=== PATIENT | female | born 1990 | race African-American/Black ===

== ENCOUNTER 2022-01-20 08:27 | Inpatient (IN) | payer OTHER, SELFPAY ==
[2022-01-20] VITALS (115 sets, daily range): BP systolic 72–141; BP diastolic 37–117; PULSE 48–166; RESP 16–18; TEMP 36.7–37.6; O2SAT 98–100
--- NOTE | 2022-01-20 09:00 | LDADM ---
This patient, Katharina Segundo, was admitted to Labor/Delivery/Recovery 108 on 01/20/22 at 08:27. Plans for labor, pain management and were discussed with patient. Patient/family oriented to hospital policies and general routines including ID bracelet, bed and alarms, visiting hours, pain management, procedures, bathroom and other care routines, personal items, smoking policy, room service/diet and guest tray routines, infant security routines, and visiting hours. Patient/Family are encouraged to report perceived risks to care and to ask questions if they do not understand what they are told or what they should do. See OBIX for further documentation.
[2022-01-20] MEDS: LACTATED RINGERS 1,000 ML 999 ML IV CONT (09:17)
[2022-01-20] MEDS: AMPICILLIN 2 GM/NS 100 ML 2 GM/100 ML BAG IVPB (09:18)
[2022-01-20 09:28] LABS: Basophils Percent Auto 0.3 % (0.2-1.2); Eosinophils Percent Auto 0.4 % (0-4.4); Hematocrit 36.4 % (37.0-47.0); Hemoglobin 12.1 g/dL (12.0-15.0); Immature Granulocyte Absolute 0.03 K/mm3 (0.00-0.031); Immature Granulocyte Percent A 0.4 % (0-0.5); Lymphocytes Absolute Auto 1.16 K/mm3 (0.9-3.2); Lymphocytes Percent Auto 14.9 % (18.3-44.2); Mean Corpuscular HGB Conc 33.2 g/dl (32-36); Mean Corpuscular Hemoglobin 27.6 pg (26-34); Mean Corpuscular Volume 82.9 fl (80-100); Monocytes Absolute Auto 0.4 K/mm3 (0.1-0.6); Neutrophils Absolute Auto 6.1 K/mm3 (1.3-6.7); Platelet Count Result 124 k/mm3 (150-375); Red Blood Count 4.39 M/mm3 (4.2-5.4); Red Cell Distribution Width 14.5 % (11.5-14.5); White Blood Count 7.8 K/mm3 (4.5-10.0)
[2022-01-20] MEDS: fentaNYL CITRATE INJ (*CRX) 100 MCG/2 ML VIAL 50 MCG IV PUSH ×2 (09:32→10:07)
[2022-01-20] MEDS: ONDANSETRON INJ 4 MG/2 ML VIAL IV PUSH (09:34)
--- NOTE | 2022-01-20 09:36 | WPDANESEPP ---
Anes - Eval Pre Procedure Procedure: labor epidural Date/Time: 01/20/22 09:36 Surgeon: felicitas Preop Diagnosis: pain during labor Pre Op Diagnosis: IOL Patient Data Age: 31 Gender: F Height: Weight: Last Vital Signs Pulse 77 01/20/22 09:30 BP 124/60 01/20/22 09:30 Allergies Allergy/AdvReac Type Severity Reaction Status Date / Time No Known Allergies Allergy Verified 01/17/22 15:54 Laboratory Tests 01/20/22 01/20/22 09:19 09:19 WBC 7.8 K/mm3 K/mm3 (4.5-10.0) RBC 4.39 M/mm3 M/mm3 (4.2-5.4) Hgb 12.1 g/dL g/dL (12.0-15.0) Hct 36.4 % L % (37.0-47.0) MCV 82.9 fl fl (80-100) MCH 27.6 pg pg (26-34) MCHC 33.2 g/dl g/dl (32-36) RDW 14.5 % % (11.5-14.5) Plt Count 124 k/mm3 L k/mm3 (150-375) MPV 13.0 fl H fl (7.4-10.4) Immature Gran % (Auto) 0.4 % % (0-0.5) Neut % (Auto) 79.0 % H % (45.5-73.1) Lymph % (Auto) 14.9 % L % (18.3-44.2) [place] % (Auto) 5.0 % % (2.6-8.5) Eos % (Auto) 0.4 % % (0-4.4) Baso % (Auto) 0.3 % % (0.2-1.2) Lymph # (Auto) 1.16 K/mm3 K/mm3 (0.9-3.2) [place] # (Auto) 0.4 K/mm3 K/mm3 (0.1-0.6) Eos # (Auto) 0.0 K/mm3 K/mm3 (0-0.3) Baso # (Auto) 0.0 K/mm3 K/mm3 (0.0-0.1) Abs Immat Gran (auto) 0.03 K/mm3 K/mm3 (0.00-0.031) Absolute Neuts (auto) 6.1 K/mm3 K/mm3 (1.3-6.7) Absolute Nucleated RBC 0.0 K/mm3 K/mm3 (0.0-0.012) Nucleated RBC % 0.0 % % (0.0-0.2) RPR Pending Patient hx anesthesia problems: none Family hx anesthesia problems: none Results Review: All pre-operative results and documents have been reviewed as part of the pre-operative evaluation. [facility] Family History Family History (Updated 01/17/22 @ 15:55 by Priti Dangelo RN) Other Unknown family medical history Social History Social History Substance use: current Last use: 2 weeks ago Spiritual care concerns: No Exam Day of Procedure 01/20/22 09:36
[2022-01-20] MEDS: LACTATED RINGERS 1,000 ML 125 ML IV CONT (10:46)
[2022-01-20] MEDS: OXYTOCIN 30 UNITS/NS 500 ML 30 UNITS/500 ML BAG 999 UNITS IV CONT (13:06)
--- NOTE | 2022-01-20 13:17 | PM.OBPRVD ---
OB - Delivery Note Procedure Delivery date: 01/20/22 Procedure: Events: Positive Group B Strep (GBS) Induction method: None Delivery monitor: External FHT and External Uterine Route of delivery: Laceration Description: None Specimen: No Quantitative Blood Loss (ml): 120 Anesthesia type: Epidural Disposition: Floor Narrative: With adequate expulsive efforts by the mother, the baby's head was delivered OA. The baby's anterior shoulder was delivered under the pubic symphysis without difficulty. The posterior shoulder and the rest of the baby delivered without difficulty. The infant was placed on the mothers chest and suctioned and stimulated. The cord was clamped and cut after 30 seconds. Mother and baby both stable. Baby Date of : 01/20/22 Time of : 13:03 Weeks of gestation at delivery: 39 Infant gender: Female Weight (pounds): 6 Weight (ounces): 15 presentation: vertex Placenta delivery description: Spontaneous Cord Vessel Description: 3 Vessels, Nuchal Cord and Delayed Cord Clamping score one minute: 9 score five minutes: 9
[2022-01-20] MEDS: OXYTOCIN 30 UNITS/NS 500 ML 30 UNITS/500 ML BAG 125 UNITS IV CONT (13:44)
[2022-01-20] MEDS: WITCH HAZEL 40 PADS 1 PAD TOPICAL (17:03)
[2022-01-20] MEDS: BENZOCAINE 20% AER SPR (*SP) 56 GM CAN 1 SPRAY TOPICAL (17:03)
[2022-01-20] MEDS: IBUPROFEN 600 MG TABLET PO (18:02)
--- NOTE | 2022-01-20 18:10 | OBPPTRN ---
1629-Patient transferred to post room #291 via wheelchair. Support person present. Oriented to unit, room, information board, rooming in, admission packet and security measures. Patient verbalizes understanding.
[2022-01-21] VITALS: BP 106/60; PULSE 54; RESP 16; TEMP 36.8; BMI 25.0
[2022-01-21 04:20] VITALS: BP 100/56; PULSE 55; RESP 18; TEMP 36.9
[2022-01-21] MEDS: IBUPROFEN 600 MG TABLET PO ×2 (04:24→12:50)
[2022-01-21 05:12] LABS: Hematocrit 32.2 % (37.0-47.0); Hemoglobin 10.4 g/dL (12.0-15.0)
[2022-01-21 07:30] VITALS: BP 109/63; PULSE 62; RESP 16; TEMP 36.6; O2SAT 100
[2022-01-21] MEDS: MULTIVIT/MIN/PREN/FOL AC/IRON TABLET 1 TAB PO (07:36)
[2022-01-21] MEDS: DOCUSATE SODIUM 100 MG CAPSULE PO ×2 (07:36→16:25)
--- NOTE | 2022-01-21 08:34 | PM.OBPNVD ---
OB - PN: Subj Subjective Date/time seen: 01/21/22 08:34 Patient comments: no complaints, pain well controlled, incisional pain, tolerating diet and flatus present OB - PN: Obj Data Labs CBC & Chem 7: 01/21/22 04:21 Labs: Laboratory Results - last 24 hr 01/20/22 01/20/22 01/21/22 09:19 09:19 04:21 WBC 7.8 RBC 4.39 Hgb 12.1 10.4 L Hct 36.4 L 32.2 L MCV 82.9 MCH 27.6 MCHC 33.2 RDW 14.5 Plt Count 124 L MPV 13.0 H Immature Gran % (Auto) 0.4 Neut % (Auto) 79.0 H Lymph % (Auto) 14.9 L [place] % (Auto) 5.0 Eos % (Auto) 0.4 Baso % (Auto) 0.3 Lymph # (Auto) 1.16 [place] # (Auto) 0.4 Eos # (Auto) 0.0 Baso # (Auto) 0.0 Abs Immat Gran (auto) 0.03 Absolute Neuts (auto) 6.1 Absolute Nucleated RBC 0.0 Nucleated RBC % 0.0 Blood Type O Positive Antibody Screen Negative OB - PN A/P Plan day: 1 Plan: routine care Comments: No problems, routine care Time Spent With Patient Time: Total time spent is greater than 50% in coordination of care (as documented) at patient's floor/unit and/or counseling patient: Exam Const: General: comfortable, no acute distress and alert Resp: Effort & Inspection: normal respiratory effort Auscultation: no crackles, no rales and no rhonchi Cardio: Rate: regular rate Heart sounds: no click, no murmurs and no rubs GI: Inspection: non-distended GI Palp: No Tenderness to palpation present (GI) Auscultation: normal bowel sounds Other: Incision - CDI Extrem: General: normal to inspection, no pedal edema and no calf tenderness
--- NOTE | 2022-01-21 08:39 | P.PNAN_ITS ---
Anes - Prog Note Post-Op Date/Time: 01/21/22 08:39 Cardiovascular status: normal Respiratory status: normal Airway patency: baseline Mental status: baseline Post-Op hydration status: normal Vital Signs: Last Vital Signs Temp 36.9 C 01/21/22 04:20 Pulse 55 L 01/21/22 04:20 Resp 18 01/21/22 04:20 BP 100/56 L 01/21/22 04:20 Pulse Ox 100 01/20/22 16:45 O2 Del Method Room Air 01/20/22 19:50 Pain Score (VAS): 0 I/O: Intake & Output 01/20/22 01/21/22 01/21/22 23:59 07:59 15:59 Intake Total 500 Output Total 245 Balance 255 Laboratory Tests 01/21/22 04:21 01/20/22 01/20/22 01/20/22 09:19 09:19 09:19 WBC 7.8 RBC 4.39 Hgb 12.1 Hct 36.4 L MCV 82.9 MCH 27.6 MCHC 33.2 RDW 14.5 Plt Count 124 L MPV 13.0 H Immature Gran % (Auto) 0.4 Neut % (Auto) 79.0 H Lymph % (Auto) 14.9 L [place] % (Auto) 5.0 Eos % (Auto) 0.4 Baso % (Auto) 0.3 Lymph # (Auto) 1.16 [place] # (Auto) 0.4 Eos # (Auto) 0.0 Baso # (Auto) 0.0 Abs Immat Gran (auto) 0.03 Absolute Neuts (auto) 6.1 Absolute Nucleated RBC 0.0 Nucleated RBC % 0.0 RPR Pending Blood Type O Positive Antibody Screen Negative 01/21/22 04:21 WBC RBC Hgb 10.4 L Hct 32.2 L MCV MCH MCHC RDW Plt Count MPV Immature Gran % (Auto) Neut % (Auto) Lymph % (Auto) [place] % (Auto) Eos % (Auto) Baso % (Auto) Lymph # (Auto) [place] # (Auto) Eos # (Auto) Baso # (Auto) Abs Immat Gran (auto) Absolute Neuts (auto) Absolute Nucleated RBC Nucleated RBC % RPR Blood Type Antibody Screen Post-procedural complaints: none Patient Feedback: Patient satisfied with anesthetic care.
[2022-01-21 12:40] VITALS: BP 105/60; PULSE 58; RESP 16; TEMP 36.7; O2SAT 100
[2022-01-21 21:07] VITALS: BP 102/61; PULSE 51; RESP 16; TEMP 36.6; O2SAT 100
[2022-01-21] MEDS: TETANUS,DIPHTHERIA,AC PERTUSSIS ADULT (0.5 ML) BOOSTRIX IM (21:19)
[2022-01-22] MEDS: IBUPROFEN 600 MG TABLET PO ×2 (04:27→10:27)
[2022-01-22 08:50] VITALS: BP 92/51; PULSE 95; RESP 18; TEMP 36.4; O2SAT 100
--- NOTE | 2022-01-22 09:00 | PC.NURSE ---
Patient viewed the discharge video Mother & Baby Care, The First Two Weeks . Patient was given the opportunity and encouraged to ask questions. Patient verbalized understanding of information shared and has been given the mother/baby guide for home reference.
--- NOTE | 2022-01-22 09:26 | P.PNOB_ITS ---
OB - PN: Subj Subjective Date/time seen: 01/22/22 09:26 Patient comments: no complaints baby status: doing well [place] feeding status: breast and bottle feeding OB - PN: Obj Data Labs CBC & Chem 7: 01/21/22 04:21 OB - PN A/P Assessment and Plan (1) , delivered: Code(s): O80 - Encounter for full-term uncomplicated delivery Status: Acute Plan day: 2 Plan: routine care and discharge home Time Spent With Patient Time: Total time spent is greater than 50% in coordination of care (as documented) at patient's floor/unit and/or counseling patient: Time with patient: less than 15 minutes Exam Narrative: NAD abdomen soft, nontender, fundus firm below the umbilicus Extremities nontender, 1+ edema
--- NOTE | 2022-01-22 09:27 | P.DS_ITS ---
DS: Admitting Diagnosis Discharge Date 01/22/22 Admitting Diagnosis term labor DS: Discharge Diagnosis Discharge Diagnosis (1) , delivered: Code(s): O80 - Encounter for full-term uncomplicated delivery Status: Acute DS: Summary Hospital Course Hospital Course: Katharina was admitted in labor at term. She proceeded to have an uncomplicated vaginal delivery and course and was discharged home on day 2. Status at Discharge Functional status at discharge: independent ambulation Time Spent with Patient Time attestation: Total time spent providing and/or coordinating discharge services: Exam Narrative: NAD abdomen soft, appropriately tender Ext non tender, 1+ edema Discharge Plan Discharge Attending physician on discharge: Shelly Garcia Discharging Clinician: Shelly Garcia Anticipated Discharge Date/Time: 01/22/22 09:27 Patient Disposition: Home, Self-Care Activity: pelvic rest Diet: regular Patient Instructions: Antibiotic Form Stand Alone Forms: General Discharge Information Follow-up/Referrals: Shelly Garcia MD [Physician] - 4 Weeks Discharge Medications: Continued PNV [id number] [] 28 mg iron- 800 mcg Tablet 1 tablet PO DAILY Date of admission: 01/20/22 08:27 Primary Care Provider: PHYSICIAN,ACCESSIBILITY LIFT TECHNICIAN Admitting Provider: Shelly Garcia Attending physician on admission: Shelly Garcia Condition: Stable
[2022-01-22] MEDS: DOCUSATE SODIUM 100 MG CAPSULE PO (09:47)
[2022-01-22] MEDS: MULTIVIT/MIN/PREN/FOL AC/IRON TABLET 1 TAB PO (09:47)
[2022-01-23 07:53] LABS: Rapid Plasma Reagin Non-Reactive (NonReactive)
[2022-01-25 10:56] VITALS: BP 120/74; PULSE 56; RESP 16; TEMP 37.3; O2SAT 100
== END 2022-01-22 11:19 | disposition home or self-care (01) | DRG 560 ==
LOC: ANHLDR 13:43 → ANHOB2 16:44
PROVIDERS: Admitting Provider Obstetrics & Gynecology; Visit Provider Obstetrics & Gynecology
DX: O99.824 Streptococcus B carrier state complicating childbirth (principal); D69.6 Thrombocytopenia, unspecified; O69.81X0 Labor and delivery complicated by cord around neck, without compression, not applicable or unspecified; Z3A.39 39 weeks gestation of pregnancy; Z37.0 Single live birth; O99.12 Other diseases of the blood and blood-forming organs and certain disorders involving the immune mechanism complicating childbirth
CPT/HCPCS: 36415; 85014; 85018; 85025; 86592; 86850; 86900; 86901; 90715; A9270; J0290; J2405; J2590; J2795; J3010; J7120

== ENCOUNTER 2025-03-20 08:30 | Emergency (ER) | payer OTHER, SELFPAY ==
--- NOTE | ~2025-03-20 | XR_ITS ---
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 Technique: 2 views obtained. Findings: The lungs are clear, no effusion. No pneumothorax. Heart is normal size. Mediastinal and hilar contours are within normal limits. Bony thorax no acute abnormality. Impression: No acute cardiopulmonary abnormality. Reviewed, dictated and finalized at location P. ING SUPERVISOR Impression: No acute cardiopulmonary abnormality.
--- NOTE | 2025-03-20 08:32 | ECG_ITS ---
Test Date: 2025-03-20 08:40:57 Measurements Intervals [place] Rate: 52 P: -6 ND: 118 QRS: 72 QRSD: 86 T: 45 QT: 398 QTc: 372 Interpretive Statements SINUS BRADYCARDIA WITH SHORT ND INTERVAL WITHIN NORMAL LIMITS INTERPRETATION BASED ON A DEFAULT AGE OF 40 YEARS No previous ECG available for comparison Electronically Signed On 03-20-2025 11:23:14 [employer] by Isaiah Watt M.D.
--- OUTSIDE RECORDS SUMMARY | 2025-03-20 08:34 | XMS_ITS | Data Portability ---
Author Organization [facility] Address [address] [place] [address] Assessment Encounter Date Assessment Date Assessment LastModified by Organization Details LastModified Time 04/19/2017 04/19/2017 Information sheet given to pt about LEEP procedure along with Dr. Vee scheduling information. Explained results to patient in detail along with procedure. Pt verbalized understanding. Will follow up with Dr. Vee for consultation. 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 detailed pathophys of HPV discussed options - will plan to proceed to LEEP at [facility] in late June also sounds like has some pretty irregular periods off of contraception. (longer term project) Not available 06/22/2017 14:49:23 08/03/2017 08/03/2017 post op check from LEEP, no further evidence of HGSIL has f/u pap with Gina in October declines OCPs for irregular perods at this point Not available 08/03/2017 12:23:57 03/26/2018 03/26/2018 1. Counseled regarding prevention of STD's , condom use and prevention. 2. Counseled regarding contraceptive options, risk factors and side effects. 3. Advised avoidance of tobacco, alcohol, and drugs . 4. Counseled regarding folic acid supplementation, calcium needs and prevention of osteoporosis . 5. BSE reviewed and recommended. 6. Follow up in one year or sooner if needed. [email or web address] Not available 03/26/2018 16:03:45 Plan of Treatment Reminders Order Date Submit Date Provider Last Modified By Organization Details Last Modified Time Details Appointments None recorded. Lab pap, IG + reflex HR HPV 2018 019 MELVIN ALEXANDER, [address], [address], [place], [address], 9 16:10:03 bacterial vaginosis + vaginitis panel, vaginal 2018 019 MELVIN ALEXANDERRP, [address], [address], [place], [address], 9 07:09:59 HBsAg (hepatitis B surface Ag), EIA, serum 2018 019 MELVIN ALLAN, [address], [address], [place], [address], 9 16:10:11 HIV 1+2 AB + HIV 1 p24 Ag, qualitative immunoassay , serum 2018 019 MELVIN ALEXANDER, [address], [address], [place], [address], 9 16:10:09 hsv (1+2) igg Ab, serum 2018 019 MELVIN ALLAN, [address], [address], [place], [address], 9 16:10:07 hepatitis C Ab, signal-to-c utoff, serum or plasma 2018 019 MELVIN ALEXANDER, [address], [address], [place], [address], 9 16:10:09 RPR (rapid plasma reagin), serum 2018 019 MELVIN ALEXANDER, [address], [address], [place], [address], 9 16:10:08 herpes simplex virus (1+2) Ab, IgM, QN, IA, serum 2018 019 [facility], [address], [address], [place], [address], 9 16:10:10 pap, IG + reflex HR HPV 2017 018 [facility], [address], [address], [place], [address], 8 16:24:06 Referral None recorded. Procedures None recorded. Surgeries None recorded. Imaging None recorded. Medication Orders None recorded. Patient TargetsNo targets recorded. Patient Instructions Encounter Date Encounter Id Patient Instructions Last Modified By Organization Details Last Modified Time 04/19/2017 [id number] abnormal Pap test: care instructions lauryn Not available 04/19/2017 11:44:35 colposcopy: before your procedure lauryn Not available 04/19/2017 11:44:36 Reason for Referral None Reported. Results Created Date Observation Date Name Description Value Unit Range Abnormal Flag Note LastModifiedBy Organization Detail LastModifiedTime 04/02/20 17 04/10/2017 patho logy study . Commimelda t Mater ial submi tted: . PART A: ENDOC ERVIC AL CURET TAGE PART B: CERVI NAYANA BIOPS Y 6:00 PART C: CERVI NAYANA BIOPS Y 3:00 PART D: CERVI NAYANA BIOPS Y 9:00 PART E: CERVI NAYANA BIOPS Y 12:00 Not Available [facility] ([facility]) [address] [facility], [place], [address], 04/10/2017 16:19:40 04/02/20 17 04/10/2017 patho logy study . Commimelda t Clini deanna provi ded ICD-1 0: R87.6 12 Not Available [facility] ([facility]) [address] [facility], [place], [address], 04/10/2017 16:19:40 04/02/20 17 04/10/2017 patho logy study . Commen t Diagn osis: Part A: ENDOC ERVIC AL CURET TAGE: NO TISSU E PRESE NT, TISSU E DID NOT SURVI VE PROCE SSING . Part B: CERVI NAYANA BIOPS Y 6:00: ECTOC ERVIC AL TISSU E WITH KOILO CYTIC STOUT E (SEE COMME NT). TRANS FORMA TION ZONE IDENT IFIED . Part C: CERVI NAYANA BIOPS Y 3:00: LOW-G RADE SQUAM OUS INTRA EPITH ELIAL LESIO N (GILLES 1) AND HIGH- GRADE SQUAM OUS INTRA EPITH ELIAL LESIO N (GILLES 2) (SEE COMME NT). TRANS FORMA TION ZONE IDENT IFIED . Part D: CERVI NAYANA BIOPS Y 9:00: BENIG N TRANS FORMA TION ZONE TISSU E. Part E: CERVI NAYANA BIOPS Y 12:00 : LOW-G RADE SQUAM OUS INTRA EPITH ELIAL LESIO N (GILLES 1) AND HIGH- GRADE SQUAM OUS INTRA EPITH ELIAL LESIO N (GILLES 2) (SEE COMME NT). TRANS FORMA TION ZONE IDENT IFIED . COMME NT: P16 immun ostai n was perfo rmed on parts B,C and E with the follo wing resul ts. Contr ols stain ed appro priat xavi. Part B- Negat robert Parts C and E- Posit robertabiodun steven rn of stain ing consi stent with high grade The histo logic featu res of this speci men corre late with patie nt's recen t pap smear . SOME TESTS USE ANANL YTE SPECI FIC REAGE NTS (ASR' S). THIS TEST WAS DEVEL OPED AND ITS PERFO RMANC E SHUKRI CTERI STICS DETER MINED BY [facility]. IT HAS NOT BEEN CLEAR ED OR APPRO CESAR BY THE US FOOD AND DRUG ADMIN ISTRA TION. THE FDA HAS DETER MINED THAT SUCH CLEAR ANCE OR APPRO RICARDO IS NOT NECES VLADISLAV. THIS TEST IS USED FOR CLINI NAYANA PURPO SES. IT SHOUL D NOT BE REGAR DED INVES TIGAT IONAL OR FOR RESEA RC. IHC Techn ical perfo rming locat ion, [facility], [address], [place] , [place]. MXB/1 2016 Not Available [facility] ([facility]) [address] [place], [address], 04/10/2017 16:19:40 04/02/20 17 04/10/2017 patho logy study . Commen t Mary león d: . Darcie steven MD, Patho logis t Not Available [facility] ([facility]) [address] [place], [address], 04/10/2017 16:19:40 04/02/20 17 04/10/2017 patho logy study . Commimelda Huynh descr iptio n: . 5 CONTA INERS , FORMA LILIANA-F ILLED , LABEL ED WITH PATIE NT IDENT IFICA TION. Part A: ENDOC ERVIC AL CURET TAGE: SCANT FRAGM ENT(S ) OF MUCUS MEASU RING 0.1 X 0.1 X 0.1 CM IN AGGRE GATE. FILTE RED AND SUBMI TTED IN CASSE TTE(S ) A. THE SPECI MEN MAY NOT SURVI VE PROCE SSING . Part B: CERVI NAYANA BIOPS Y 6:00: 1 FRAGM ENT(S ) OF WHITTEN MUCOI D TISSU E MEASU RING 0.2 X 0.2 X 0.1 CM. FILTE RED AND SUBMI TTED RECEI CESAR IN CASSE TTE(S ) B. Part C: CERVI NAYANA BIOPS Y 3:00: 1 FRAGM ENT(S ) OF WHITTEN MUCOI D TISSU E MEASU RING 0.3 X 0.2 X 0.1 CM. FILTE RED AND SUBMI TTED RECEI CESAR IN CASSE TTE(S ) C. Part D: CERVI NAYANA BIOPS Y 9:00: 1 FRAGM ENT(S ) OF WHITTEN MUCOI D TISSU E MEASU RING 0.3 X 0.2 X 0.1 CM. FILTE RED AND SUBMI TTED RECEI CESAR IN CASSE TTE(S ) D. Part E: CERVI NAYANA BIOPS Y 12:00 : 1 FRAGM ENT(S ) OF WHITTEN MUCOI D TISSU E MEASU RING 0.2 X 0.2 X 0.1 CM. FILTE RED AND SUBMI TTED RECEI CESAR IN CASSE TTE(S ) E. /LMS LMS/L MS Not Available [facility] ([facility]) [address] [place], [address], 04/10/2017 16:19:40 04/02/20 17 04/10/2017 patho logy study . Commen t Patho logis t provi ded ICD-1 0: N87.0 , N87.1 , N87.0 , N87.1 Not Available [facility] ([facility]) [address] [place], [address], 04/10/2017 16:19:40 04/02/20 17 04/10/2017 patho logy study . Commen t CPT . 98250 1, 13666 2, 61154 3, 09899 4, 78604 5, W2006 3, P2006 3 Not Available [facility] ([facility]) [address] [place], [address], 04/10/2017 16:19:40 03/26/20 18 03/28/2018 pap, IG + refle x HR HPV diagnosis: Commen t NEGAT ROBERT FOR INTRA EPITH ELIAL LESIO N AND MALHAROLDO BLEVINS . REACT ROBERT CELLU LAR STOUT ES AND/O R REPAI R ARE PRESE NT. Not Available [facility] ([facility]) [address] [place], [address], 03/28/2018 16:24:06 03/26/20 18 03/28/2018 pap, IG + refle x HR HPV specimen adequacy: Prakash matias Satis facto ry for evalu ation . Endoc ervic al and/o r squam ous metap lasti c cells (endo cervi nayana compo nent) are prese nt. Not Available [facility] ([facility]) [address] [facility], [place], [address], 03/28/2018 16:24:06 03/26/20 18 03/28/2018 pap, IG + refle x HR HPV clinician provided ICD10: Prakash matias Z01.4 11 Not Available [facility] ([facility]) [address] [place], [address], 03/28/2018 16:24:06 03/26/20 18 03/28/2018 pap, IG + refle x HR HPV performed by: Prakash ibarra, Cytot echno logis t (ASCP ) Not Available [facility] ([facility]) [address] [place], [address], 03/28/2018 16:24:06 03/26/20 18 03/28/2018 pap, IG + refle x HR HPV electronical ly signed by: Prakash andrade MD, Patho logis t Not Available [facility] ([facility]) [address] [place], [address], 03/28/2018 16:24:06 03/26/20 18 03/28/2018 pap, IG + refle x HR HPV . . Not Available [facility] ([facility]) [address] [place], [address], 03/28/2018 16:24:06 03/26/20 18 03/28/2018 pap, IG + refle x HR HPV note: Prakash matias The Pap smear is a scree mamta test desig alistair to aid in the detec tion of fatoumata ligna nt and malig nant condi tions of the uteri ne cervi x. It is not a diagn ostic proce dure and shoul d not be used as the sole means of detec ting cervi nayana cance r. Both false -posi tive and false -nega tive repor ts do occur . Not Available [facility] ([facility]) [address] [place], [address], 03/28/2018 16:24:06 03/26/20 18 03/28/2018 pap, IG + refle x HR HPV test methodology: Commen t This liqui d based ThinP rep(R ) pap test was scremaurizio sainz with the use of an image guide marycarmen newton. Not Available [facility] ([facility]) [address] [facility], [place], [address], 03/28/2018 16:24:06 03/26/20 18 03/28/2018 pap, IG + refle x HR HPV . Commen t The HPV DNA refle x crite evelia were not met with this speci men resul t there fore, no HPV testi ng was perfo rmed. Not Available [facility] ([facility]) [address] [facility], [place], [address], 03/28/2018 16:24:06 04/02/20 19 04/03/2019 hsv (1+2) igg Ab, serum hsv 1 IgG, type spec 31.20 index 0.00-0 .90 above high normal Negat robert <0.91 Equiv ocal 0.91 - 1.09 Posit robert >1.09 Note: Negat robert indic ates no antib odies detec harshil to HSV-1 . Equiv ocal may sugge st early infec tion. If clini lester appro priat e, retes t at later date. Posit robert indic ates antib odies detec harshil to HSV-1 . Not Available [facility] ([facility]) [address] [facility], [place], [address], 04/03/2019 16:10:07 04/02/20 19 04/03/2019 hsv (1+2) igg Ab, serum hsv 2 IgG, type spec 3.55 index 0.00-0 .90 above high normal Negat robert <0.91 Equiv ocal 0.91 - 1.09 Posit robert >1.09 Note: Negat robert indic ates no antib odies detec harshil to HSV-2 . Equiv ocal may sugge st early infec tion. If clini lester appro priat e, retes t at later date. Posit robert indic ates antib odies detec harshil to HSV-2 . Not Available [facility]) [address] [facility], [place], [address], 04/03/2019 16:10:07 04/02/20 19 04/03/2019 hsv (1+2) igg Ab, serum hsv-2 IgG supplemental test Positi ve negati ve abnormal HSV-2 IgG HSV-2 IgG Type Speci fic Confi rmati on Inter preta tion ----- ----- ----- ----- ----- ----- ----- ----- ----- ----- ----- Posit robert/E quivo nayana Posit robert Indic ates the prese nce of detec table IgG antib odies to HSV-2 . ----- ----- ----- ----- ----- ----- ----- ----- ----- ----- ----- Posit robert/E quivo nayana Negat robert Unabl e to confi rm the prese nce of IgG antib odies to HSV-2 . Recom mend stephanie magaña in 2-4 weeks . ----- ----- ----- ----- ----- ----- ----- ----- ----- ----- ----- Not Available [facility] ([facility]) [address] [facility], [place], [address], 04/03/2019 16:10:07 04/02/20 19 04/03/2019 RPR (rapi d plasm a reagi n), serum RPR Non Reacti ve non reacti ve Not Available [facility] ([facility]) [address] [facility], [place], [address], 04/03/2019 16:10:08 04/02/20 19 04/03/2019 HIV 1+2 AB + HIV 1 p24 Ag, quali tativ e immun oassa y, serum HIV screen 4TH generation wrfx Non Reacti ve non reacti ve Not Available [facility] ([facility]) [address] [place] [address], [place], [address], 04/03/2019 16:10:08 04/02/20 19 04/03/2019 hepat itis C Ab, signa l-to- cutof f, serum or plasm a HCV Ab <0.1 s/co_ ratio 0.0-0. 9 Not Available [facility] ([facility]) [address] [place] [address], [place], [address], 04/03/2019 16:10:09 04/02/20 19 04/03/2019 hepat itis C Ab, signa l-to- cutof f, serum or plasm a comment: Commen t Non react robert HCV antib diann scree n is consi stent with no HCV infec tion, unles s recen t infec tion is suspe cted or other evide nce exist s to indic ate HCV infec tion. Not Available [facility] ([facility]) [address] [facility], [place], [address], 04/03/2019 16:10:09 04/02/20 19 04/03/2019 herpe s simpl ex virus (1+2) Ab, IgM, QN, IA, serum hsv, IgM I/II combination <0.91 ratio 0.00-0 .90 Negat robert <0.91 Equiv ocal 0.91 - 1.09 Posit robert >1.09 Not Available [facility] ([facility]) [address] [facility], [place], [address], 04/03/2019 16:10:10 04/02/20 19 04/03/2019 HBsAg (hepa titis B surfa ce Ag), EIA, serum HBsAg screen Negati ve negati ve Not Available [facility] ([facility]) [address] [facility], [place], [address], 04/03/2019 16:10:10 04/02/20 19 04/04/2019 bacte rial vagin osis + vagin itis panel , vagin al atopobium vaginae High - 2 score abnormal Not Available [facility] ([facility]) [address] [facility], [place], [address], 04/05/2019 07:09:59 04/02/20 19 04/04/2019 bacte rial vagin osis + vagin itis panel , vagin al bvab 2 High - 2 score abnormal Not Available [facility] ([facility]) [address] [place] [address], [address], 04/05/2019 07:09:59 04/02/2004/04/2019 bacte rial vagin osis + vagin itis panel , vagin al megasphaera 1 High - 2 score abnormal Calcu late total score by rubi bullard the 3 indiv idual bacte rial vagin osis (BV) marke r score s toget her. Total score is inter prete d as follo ws: Total score 0-1: Indic ates the absen ce of BV. Total score 2: Indet ermin ate for BV. Addit ional clini nayana data shoul d be evalu ated to estab karla a diagn osis. Total score 3-6: Indic ates the prese nce of BV. This test was devel oped and its perfo rmanc e shukri cteri stics deter mined by [facility]. It has not been clear ed or appro cesar by the Food and Drug Admin istra tion. The FDA has deter mined that such clear ance or appro ricardo is not neces vladislav. Not Available [facility] ([facility]) [address] [place], [address], 04/05/2019 07:09:59 04/02/20 19 04/04/2019 bacte rial vagin osis + vagin itis panel , vagin al denisa albicans, YISEL Negati ve negati ve Not Available [facility] ([facility]) [address] [facility], [place], [address], 04/05/2019 07:09:59 04/02/2004/04/2019 bacte rial vagin osis + vagin itis panel , vagin al denisa glabrata, YISEL Negati ve negati ve This test was devel boboed and its perfo rmanc e shukri cteri stics deter mined by [facility]. It has not been clear ed or appro cesar by the Food and Drug Admin istra tion. The FDA has deter mined that such clear ance or appro ricardo is not neces vladislav. Not Available [facility] ([facility]) [address] [facility], [place], [address], 04/05/2019 07:09:59 04/02/2004/04/2019 bacte rial vagin osis + vagin itis panel , vagin al trich vag by YISEL Negati ve negati ve Not Available [facility] ([facility]) [address] [place], [address], 04/05/2019 07:09:59 04/02/2004/05/2019 bacte rial vagin osis + vagin itis panel , vagin al chlamydia trachomatis, YISEL Negati ve negati ve Not Available [facility] ([facility]) [address] [facility], [place], [address], 04/05/2019 07:09:59 04/02/20 19 04/05/2019 bacte rial vagin osis + vagin itis panel , vagin al neisseria gonorrhoeae, YISEL Negati ve negati ve Not Available [facility] ([facility]) [address] [place], [address], 04/05/2019 07:09:59 04/02/20 19 04/07/2019 pap, IG + refle x HR HPV diagnosis: Commimelda t NEGAT ROBERT FOR INTRA EPITH ELIAL LESIO N OR MALIG GEN . THIS SPECI MEN WAS RESCR EENED PART OF OUR QUALI TY CONTR OL PROGR AM. Not Available [facility] ([facility]) [address] [facility], [place], [address], 04/07/2019 16:10:03 04/02/20 19 04/07/2019 pap, IG + refle x HR HPV specimen adequacy: Prakash t Satis facto ry for evalu ation . Endoc ervic al and/o r squam ous metap lasti c cells (endo cervi nayana compo nent) are prese nt. Not Available [facility] ([facility]) [address] [facility], [place], [address], 04/07/2019 16:10:03 04/02/20 19 04/07/2019 pap, IG + refle x HR HPV clinician provided ICD10: Prakash matias Z01.4 11 Not Available [facility] ([facility]) [address] [place], [address], 04/07/2019 16:10:03 04/02/20 19 04/07/2019 pap, IG + refle x HR HPV performed by: Prakash Barakat, Cytot echno logis t (ASCP ) Not Available [facility] ([facility]) [address] [place], [address], 04/07/2019 16:10:03 04/02/20 19 04/07/2019 pap, IG + refle x HR HPV QC reviewed by: Prakash nice, Cytot echno logis t (ASCP ) Not Available [facility] ([facility]) [address] [facility], [place], [address], 04/07/2019 16:10:03 04/02/20 19 04/07/2019 pap, IG + refle x HR HPV . . Not Available [facility] ([facility]) [address] [facility], [place], [address], 04/07/2019 16:10:03 04/02/20 19 04/07/2019 pap, IG + refle x HR HPV note: Commen t The Pap smear is a scree mamta test desig alistair to aid in the detec tion of fatoumata ligna nt and malig nant condi tions of the uteri ne cervi x. It is not a diagn ostic proce dure and shoul d not be used as the sole means of detec ting cervi nayana cance r. Both false -posi tive and false -nega tive repor ts do occur . Not Available [facility] ([facility]) [address] [facility], [place], [address], 04/07/2019 16:10:03 04/02/20 19 04/07/2019 pap, IG + refle x HR HPV test methodology: Commen t This liqui d based ThinP rep(R ) pap test was scree alistair with the use of an image guide d syste m. Not Available [facility] ([facility]) [address] [facility], [place], [address], 04/07/2019 16:10:03 04/02/20 19 04/07/2019 pap, IG + refle x HR HPV . Commen t The HPV DNA refle x crite evelia were not met with this speci men resul t there fore, no HPV testi ng was perfo rmed. Not Available [facility] ([facility]) [address] [place], [address], 04/07/2019 16:10:03 Result Notes None recorded. Problems No Known Problems Procedures Surgical History Date Name Laterality Status Provider Name and Address Organization Details Recorded Time 12/04/201 7 Colposcopy completed Gina COLUMBA Sanderson Attn: Accounting,[address] , [place], [address], [facility] 04/11/2017 21:26:46 7 Colposcopy completed Coby Crawford [place] - [facility] 06/22/2017 14:24:14 7 Date of Last Pap Smear completed Coby Crawford [place] [facility] 06/22/2017 09:02:22 7 Depo Injection completed Paulette Leonardo [place] [facility] 05/19/2016 11:28:09 Imaging Results None recorded. Procedure Notes None recorded. Medical Equipment None Reported. Allergies No known drug allergies Medications Name Sig Start Date Stop Date Status Note LastModified by Organization Details LastModified Time Prescriptio n - New 03/16 completed Not Available Not Available Not Available ibuprofen 800 mg tablet active Not Available Not Available Not Available Doc-Q-Lace 100 mg capsule active Not Available Not Available Not Available valacyclovi r 500 mg tablet active Not Available Not Available Not Available Flagyl 500 mg tablet Take 1 tablet every 12 hours by oral route for 7 days. 2018 active Not Available Not Available Not Avai lable ferrous sulfate 325 mg (65 mg iron) tablet active Not Available Not Available Not Available medroxyprog esterone 150 mg/mL intramuscul ar suspension INJECT 1ML INTRAMUSC ULARLY EVERY 3 MONTHS DIRECTED 03/16 completed Not Available Not Available Not Available vits 96-ferrous fumarate 27 mg iron-folic acid 800 mcg tablet active Not Available Not Available N ot Available Vitals Date Recorded Body height Body mass index (BMI) Body weight Systolic And Diastolic Provider Name and Address Organization Details Last Updated DateTime 06/22/2017 167.64 cm 19.7 kg/m2 42917.27 g 104/72 mm[Hg] Coby Crawford MA [facility] 06/22/2017 14:32:10 Date Recorded Body height Body mass index (BMI) Body weight Systolic And Diastolic Provider Name and Address Organization Details Last Updated DateTime 08/03/2017 167.64 cm 20.3 kg/m2 53192.56 g 102/67 mm[Hg] Coby Crawford [facility] 08/03/2017 12:06:01 Date Recorded Body height Body mass index (BMI) Body weight Systolic And Diastolic Provider Name and Address Organization Details Last Updated DateTime 03/26/2018 167.64 cm 20.5 kg/m2 44943.37 g 112/72 mm[Hg] Vani Hoffman MA [facility] 03/26/2018 15:51:57 Date Recorded Body height Body mass index (BMI) Body weight Systolic And Diastolic Provider Name and Address Organization Details Last Updated DateTime 04/02/2019 167.64 cm 20.9 kg/m2 22317.61 g 100/58 mm[Hg] Hui Cruz MA [facility] 04/02/2019 11:01:31 Date Recorded Body height Body mass index (BMI) Body weight Systolic And Diastolic Provider Name and Address Organization Details Last Updated DateTime 04/19/2017 167.64 cm 21.2 kg/m2 68729 g 122/60 mm[Hg] uHi Cruz MA [facility] 04/19/2017 10:09:28 Social History Question Answer Notes LastModified by DNS:Net Details LastModified Time Tobacco Smoking Status Current Some Day [facility] 05/19/2016 11:24:10 Is Blood Transfusion Acceptable In An Emergency? Yes [email or web address] Information not available 06/16/2015 What Is Your Level Of Caffeine Consumption? Moderate [email or web address] Information not available 06/16/2015 What Was The Date Of Your Most Recent Tobacco Screening? 06/22/2017 Information not available 11/21/2018 Do You Use Protection During Sex? Always [email or web address] Information not available 06/16/2015 Are You Sexually Active? Yes Information not available 06/16/2015 Sex: Unknown Functional Status Question Answer Note LastModified by DNS:Net Details LastModified Time What is your level of alcohol consumption? Occasional [email or web address] Information not available 06/16/2015 Mental Status None recorded. Family History Nothing Reported. Medical History Condition Response Other N High Blood Pressure N Breast Cancer N Thyroid Problems N Kidney or Bladder Problems N GI Problems N Depression N Blood Clots N Lung Disease N Acne N Breast Problem N Eating Disorder N Anemia N Anesthesia Complications N Headaches/Migraines N Anxiety Disorder N Diabetes N Ovarian Cancer N Muscle, Joint, or Bone Problems N Blood Transfusions N Seizures/Epilepsy N Polyps N Infertility N Acid Reflux (GERD) N Cancer N Abuse/Domestic Violence N Asthma N Endometriosis N High Cholesterol N Hepatitis N Liver Disease N Heart Disease N Pre-Eclampsia N Osteoporosis N Gynecological History Statement/Question Response Abnormal Pap Y Flow Moderate Date of LMP 03/11/2019 On BCP's at Conception? Y STIs/STDs Y Duration of Flow (days) 7 Age at Menarche 12 Current Control Method None Sexually Active? N Menses Monthly N Date of Last Pap Smear 03/16/2017 LMP Definite Obstetrics History GPAL:G 1 P 1 0 0 1 Type Value Full Term 1 Living 1 Total 1 Past Encounters Encounter ID Performer Location Encounter Start Date Encounter Closed Date Diagnosis/Indication Diagnosis SNOMED-CT Code Diagnosis ICD10 Code Diagnosis IMO Codes Diagnosis Note [id number] MD Temo Mary ([place] [id number]) [address] [place] [address] 3 03/30/2014 17:16:55 03/31/2014 11:51:15 care [id number] Patient doing well. Uses contraception [id number] Counseled regarding option for control and desires depo provera. She understand s that there is possible impact on her milk-let down with this method though that is unlikely and she is encouraged to continue regular breast feeding. Prescripti on was given today for depo provera [id number] MD Temo Mary ([place] [address]) [address] [place] [address] 07/01/2014 09:08:34 07/03/2014 09:20:04 Contraception education [id number] MD Temo Mary ([place] [address]) [address] [place] [address] 06/16/2015 09:56:54 06/16/2015 12:19:34 Gynecologic examination [id number] Z01.419 Uses depot contraception [id number] Z30.42 [id number] Gina Sanderson [facility] Temo Pierce ([place] [address]) [address] [place] [address] 12/17/2015 10:00:31 12/17/2015 10:42:13 Uses contraception [id number] Z30.42 [id number] DESIREE Marcus Womenraymond ([facility]) [address] [facility] [place] [address] 05/19/2016 11:08:28 05/19/2016 16:24:46 Uses depot contraception [id number] Z30.42 [id number] DESIREE Marcus [facility] ([facility]) [address] [place] [address] 03/16/2017 09:55:30 03/16/2017 18:04:36 Gynecologic examination [id number] Z01.954 [id number] DESIREE Marcus [facility] ([facility]) [address] [place] [address] 04/02/2017 11:50:23 04/12/2017 09:08:47 Cervicovaginal cytology: Low grade squamous intraepithelial lesion [id number] R87.137 [id number] DESIREE Marcus ([facility]) [address] [facility] [place] [address] 04/19/2017 10:04:27 04/19/2017 16:32:33 Abnormal cervical Papanicolaou smear [id number] R87.495 [id number] MD Temo Carmichael ([facility]) [address] [facility] [place] [address] 06/22/2017 14:04:24 06/26/2017 12:11:28 Cervicovaginal cytology: High grade squamous intraepithelial lesion or carcinoma [id number] R87.232 [id number] MD Temo Carmichael ([facility]) [address] [facility] [place] [address] 08/03/2017 11:41:03 08/03/2017 12:40:27 Cervicovaginal cytology: High grade squamous intraepithelial lesion or carcinoma [id number] R87.133 [id number] DESIREE Marcus [address] [place] [address] 03/26/2018 15:45:47 03/27/2018 08:59:09 Gynecologic examination 54062078 Z01.773 [id number] DESIREE Marcus Temo 14 OB [address] [facility] [address] [place] [address] 04/02/2019 10:43:43 04/03/2019 08:57:00 Gynecologic examination 60369424 Z01.411 1. Counseled regarding prevention of STD's , condom use and prevention . 2. Counseled regarding contracept robert options, risk factors and side effects. 3. Advised avoidance of tobacco, alcohol, and drugs . 4. Counseled regarding folic acid supplement ation, calcium needs and prevention of osteoporos is . 5. BSE reviewed and recommende d. 6. Follow up in one year or sooner if needed. Venereal d isease screening [id number] Z11.3 1. STD testing done per pt request 2. Educated pt on STD prevention , Condom use 3. Pt verbalized understand ing 4. Will follow up pending lab results, as needed or at next annual Irregular periods [id number] N92.6 Pt encouraged to keep period tracker for next several months. Educated on things that can cause cycle to become irregular including but not limited to stress, exercise, weight loss, weight gain, major life changes etc. Pt verbalized understand ing. Will follow up if interventi on is desired. Health Concerns Section Related Observation LastModified by Organization Detai ls LastModified Time None Recorded Concern Status LastModified by Organization Details LastModified Time None Recorded Advance Directives Directive None Recorded Payers Insurance Date Sequence Insurance Name Policy Number Policy Avilez Covered Member ID Avilez Member ID Guarantor Name 03/30/2019 1 [facility] (MEDICAID HMO) [id number] Notes Date Note Type Note Provider Name and Address Organization Details Recorded Time 7 text/html Follow up on Colpo results. Leep recommended by Dr. Vee. COLUMBA Marcus Attn: Accounting,[address] [facility], [place], [address], [facility] 04/19/2017 11:17:22 8 text/html Annual GYNReported by PatientHistoryFor history, patient reportsno gynecologic complaints.Genitourinary symptomsFor menstrual cycle, patient reportsnormal menses(periods irregular on depo provera). For urinary symptoms, patient reportsno hematuriaandno incontinence. For vulva, patient reportsno genital lesion. For vagina, patient reportsnormal vaginal discharge.Breast symptomsFor breast, patient reportsno breast pain,no breast lump, andno nipple discharge.ContraceptionFo r current contraception, patient reportsmonogamous relationship.Endocrine symptomsFor sexual complaints, patient reportsno sexual complaints. For menopausal symptoms, patient reportsno menopausal symptoms.Psychological symptomsFor psychological symptoms, patient reportsno depression,no anxiety, andno pmdd.Preventative measuresFor preventive measures, patient reportsencourage self breast examination,encourage regular exercise,followed with yearly pap smears, andhistory of abnormal pap smear/cervical dysplasia.ROS as noted in the HPI Annual, no complaints. No longer on control. LEEP done October 2017. DESIREE Marcus Attn: Accounting,[address] [place], [address], [place] [facility] 03/26/2018 16:04:03 9 text/html Annual GYNReported by PatientGenitourinary symptomsFor menstrual cycle, patient reportsirregular cycle intervals. For urinary symptoms, patient reportsno hematuriaandno incontinence. For vulva, patient reportsno genital lesion. For vagina, patient reportsnormal vaginal discharge.Breast symptomsFor breast, patient reportsno breast pain,no breast lump, andno nipple discharge.ContraceptionFo r current contraception, patient reportsmonogamous relationshipandrequests testing for sexually transmitted infections.Endocrine symptomsFor sexual complaints, patient reportsno sexual complaints. For menopausal symptoms, patient reportsno menopausal symptoms.Psychological symptomsFor psychological symptoms, patient reportsno depression,no anxiety, andno pmdd.Preventative measuresFor preventive measures, patient reportsencourage self breast examination,encourage regular exercise,followed with yearly pap smears, andhistory of abnormal pap smear/cervical dysplasia.ROS as noted in the HPI abnormal pap 02/2017LEEP with Vee 06/2017normal pap 02/2018would like std testingstates she has been on cycle since 03/11/19, heavy some days other days light pad. States prior to this she was having regular cycles with exception of same time last year her cycle was 4 weeks long. She states no treatment to stop it at that time. DESIREE Marcus Attn: Accounting,[address], [place], [address], [place] [facility] 04/02/2019 11:23:29 OBGyn Episode Ob Episode Information Episode Created Date Number of Fetuses Patient Bloodtype Patient rh Status Prepregnancy Weight lbs Domestic Partner Domestic Partner Phone Father Name [employer] Status 03/20/20 14 1 CLOSED Fetus Data First Name Last Name Admitted to NICU Weight (g) Sex Living Outcome Pediatric Complications Fetus ID Race Codes Race Delivery Type 3261.32 [id number] F [id number] Vaginal Gomez Calculation Initial Gomez Date Initial Exam Date Initial Exam Provider Initial Ultrasound Date Last Menstrual Period Date Ultra Sound Weeks Gestation 0 Eighteen To Twenty Week Gomez Update Ultra Sound Date Fundal Height At Umbil Quickening Date Ultra Sound Latest Weeks Gestation Final Gomez Confirmed By Final Gomez Confirmed Date Final Gomez Date Ultra Sound Latest Days Gestation 0 0 Menstrual History Last Menstrual Date Menses Monthly On Bcp Conception Prior Menses Frequency Hcg Plus Date Menarche Onset Age Delivery Information Delivery Date Delivery Type Labor Anesthesia Weeks Gestation Incision Type Labor Labor Length Hrs Delivered By Post Complications Tubal Sterilization Discharge Date Comments 4 40 Discharge Information Feeding Method Contraceptive Method Maternal HG B and HCT Levels
--- OUTSIDE RECORDS SUMMARY | 2025-03-20 08:34 | XMS_ITS | Data Portability ---
Author Organization [facility] [place] Address [address] [place] [address] Assessment Encounter Date Assessment Date Assessment LastModified by Organization Details LastModified Time 02/20/2022 02/20/2022 Normal exam May resume normal activities contraceptive plan-- declines. FU for WWE June Not available 02/20/2022 14:47:17 03/09/2025 03/09/2025 Annual gynecological exam performed. Patient will come back in a year unless there are new symptoms. [email or web address] Not available 03/09/2025 12:51:21 Plan of Treatment Reminders Order Date Submit Date Provider Last Modified By Organization Details Last Modified Time Details Appointments None recorded. Lab hbcab (hepatitis B core Ab) igm, serum 2024 [facility] (Lab), [address] [place], [address], 5 04:07:56 HBsAg (hepatitis B surface Ag), serum 2024 [facility] (Lab), [address] [place], [address], 5 04:07:56 hepatitis C virus Ab, serum 2024 025 [facility] (Lab), [address] [place], [address], 5 04:07:57 HIV 1+2 AB + HIV 1 p24 Ag, qualitative immunoassay , serum 2024 025 [facility] (Lab), [address] [facility], [place], [address], 5 04:07:57 RPR (rapid plasma reagin), serum 2024 025 [facility] (Lab), [address] [facility], [place], [address], 5 04:07:57 unlisted lab - women's health swab plus, YISEL 2024 025 [facility] (Lab), [address] [facility], [place], [address], 5 11:48:58 pap, IG + HR HPV - HPV regardless but if HPV is positive need subtyping 16,18/45 2024 025 [facility] (Lab), [address] [facility], [place], [address], 5 11:48:58 Referral None recorded. Procedures None recorded. Surgeries None recorded. Imaging US, obstetric, follow-up 2021 022 [email or web address] [place], [address], [place], [address], 10:42:23 Medication Orders metronidazo le 500 mg tablet 2024 025 [id number], [address], [place], [place], [id number], 13:10:35 Patient TargetsNo targets recorded. Patient InstructionsNo instructions recorded. Reason for Referral None Reported. Results Created Date Observation Date Name Description Value Unit Range Abnormal Flag Note LastModifiedBy Organization Detail LastModifiedTime 12/29/19 22 12/28/2021 CULTU RE: GROUP B STREP SCREE N, REFLE X SUSCE PTIBI LITY result report SEE RESULT S BELOW abnormal Test: Cultu re: Group B Strep , Refle x Susce ptibi lity ([facility]/ [facility] ) Speci men Sourc e: Vagin a/Rec tena Speci men Type: Vagin al/Re ctal Speci men Date: 2021 4:21 PM Resul t Date: 022 8:46 PM Resul t Statu s: Final resul t Abnor mal: Yes Resul ting Lab: [facility] [address] [facility] [address] Tel: CULTU RE ----- ----- ----- --- Posit zarina for Strep tococ cus agala ctiae (Grou p B) (Abno rmal) Clind amyci n susce ptibl e, eryth romyc in resis tant. The clind amyci n induc tion test (D-t est) is negat zarina, there fore clind amyci n shoul d be clini lester effec tive again st this isola te. Not Available [facility] [address] [place], [address], 01/01/2022 21:48:26 01/07/20 22 01/06/2022 CBC W/DIF F WBC 6.2 10'3/ uL 3.6-10 .2 Not Available [facility] [address] [place], [address], 01/07/2022 01:34:43 01/07/20 22 01/06/2022 CBC W/DIF F RBC 4.18 10'6/ uL (based on docume nted legal sex) 4.10-5 .30 Not Available [facility] [address] [place], [address], 01/07/2022 01:34:43 01/07/20 22 01/06/2022 CBC W/DIF F HGB 11.4 g/dL (based on docume nted legal sex) 11.9-1 5.8 low Not Available [facility] [place], [address], 01/07/2022 01:34:43 01/07/20 22 01/06/2022 CBC W/DIF F HCT 35.1 % (based on docume nted legal sex) 37.4-4 8.3 low Not Available [facility] [place], [address], 01/07/2022 01:34:43 01/07/20 22 01/06/2022 CBC W/DIF F MCV 84.0 fL 82.0-9 9.0 Not Available [facility] [place], [address], 01/07/2022 01:34:43 01/07/20 22 01/06/2022 CBC W/DIF F MCH 27.3 pg 27.0-3 3.0 Not Available [facility] [place], [address], 01/07/2022 01:34:43 01/07/20 22 01/06/2022 CBC W/DIF F MCHC 32.5 g/dL 32.0-3 6.0 Not Available [facility] [place], [address], 01/07/2022 01:34:43 01/07/20 22 01/06/2022 CBC W/DIF F RDW 14.8 % 11.0-1 5.0 Not Available [facility] [place], [address], 01/07/2022 01:34:43 01/07/20 22 01/06/2022 CBC W/DIF F plt 128 10'3/ uL 150-45 0 low Not Available [facility] [place], [address], 01/07/2022 01:34:43 01/07/20 22 01/06/2022 CBC W/DIF F MPV 13.9 fL 9.8-12 .7 high Not Available [facility] [place], [address], 01/07/2022 01:34:43 01/07/20 22 01/06/2022 CBC W/DIF F NRBC's 0.0 % 0 Not Available [facility] [place], [address], 01/07/2022 01:34:43 01/07/20 22 01/06/2022 CBC W/DIF F absolute NRBCs 0.0 10'3/ uL 0 Not Available [facility] [place], [address], 01/07/2022 01:34:43 01/07/20 22 01/06/2022 CBC W/DIF F neutrophils 76.3 % 37.0-7 2.0 high Not Available [facility] [place], [address], 01/07/2022 01:34:43 01/07/20 22 01/06/2022 CBC W/DIF F lymphocytes 15.8 % 16.0-4 8.0 low Not Available [facility] [place], [address], 01/07/2022 01:34:43 01/07/20 22 01/06/2022 CBC W/DIF F monocytes 6.3 % 4.0-14 .0 Not Available [facility] [place], [address], 01/07/2022 01:34:43 01/07/20 22 01/06/2022 CBC W/DIF F eosinophils 0.6 % 0.0-9. 0 Not Available [facility] [address] [place], [place] [address], [place], [address], 01/07/2022 01:34:43 01/07/20 22 01/06/2022 CBC W/DIF F basophils 0.5 % 0.0-2. 0 Not Available [facility] [address] [place] [address], [address], 01/07/2022 01:34:43 01/07/20 22 01/06/2022 CBC W/DIF F immature granulocytes 0.5 % no define d refere nce range Not Available [facility] [address] [place] [address], [address], 01/07/2022 01:34:43 01/07/20 22 01/06/2022 CBC W/DIF F absolute neutrophils 4.7 10'3/ uL 1.1-6. 0 Not Available [facility] [address] [place] [address], [address], 01/07/2022 01:34:43 01/07/20 22 01/06/2022 CBC W/DIF F absolute lymphocytes 1.0 10'3/ uL 0.7-3. 4 Not Available [facility] [address] [place] [address], [address], 01/07/2022 01:34:43 01/07/20 22 01/06/2022 CBC W/DIF F absolute monocytes 0.4 10'3/ uL 0.3-1. 0 Not Available [facility] [address] [place] [address], [address], 01/07/2022 01:34:43 01/07/20 22 01/06/2022 CBC W/DIF F absolute eosinophils 0.0 10'3/ uL 0.0-0. 6 Not Available [facility] [place], [address], 01/07/2022 01:34:43 01/07/20 22 01/06/2022 CBC W/DIF F absolute basophils 0.0 10'3/ uL 0.0-0. 1 Not Available [facility] [address], [place], [address], 01/07/2022 01:34:43 01/07/2001/06/2022 CBC W/DIF F absolute immature granulocytes 0.0 10'3/ uL 0.00-0 .10 2021 12:32 AM: P indic ates parti al resul ts on a panel have been relea sed. Addit ional resul ts will follo w. 2021 12:32 AM: This resul t has been final verif ied. No addit ional or fraser ed resul ts are expec harshil. Not Available [facility] [address] [place] [address], [address], 01/07/2022 01:34:43 01/14/2001/13/2022 PLATE LET COUNT plt 126 10'3/ uL 150-45 0 low Not Available [facility] [address] [place], [place] [address], [place], [address], 01/14/2022 04:36:44 03/09/2003/09/2025 WOMEN 'S HEALT H SWAB PLUS, YISEL bacterial vaginosis (bv), tma Positi ve negati ve abnormal Not Available [facility] (Lab) [address] [facility], [place], [address], 03/13/2025 11:48:58 03/09/20 25 03/09/2025 WOMEN 'S HEALT H SWAB PLUS, YISEL denisa species, tma Negati ve negati ve Not Available [facility] (Lab) [address] [facility], [place], [address], 03/13/2025 11:48:58 03/09/2003/09/2025 WOMEN 'S HEALT H SWAB PLUS, YISEL denisa glabrata, tma Negati ve negati ve Not Available [facility] (Lab) [address] [place], [address], 03/13/2025 11:48:58 03/09/20 25 03/09/2025 WOMEN 'S HEALT H SWAB PLUS, YISEL trichomonas vaginalis, tma Negati ve negati ve Not Available [facility] (Lab) [address] [place], [address], 03/13/2025 11:48:58 03/09/20 25 03/09/2025 WOMEN 'S HEALT H SWAB PLUS, YISEL chlamydia trachomatis, PCR Instr ument error Not Available [facility] (Lab) [address] [place], [address], 03/13/2025 11:48:58 03/09/2003/09/2025 WOMEN 'S HEALT H SWAB PLUS, YISEL neisseria gonorrhoeae, PCR Instr ument error Bacte rial vagin osis detec ts the follo wing bacte evelia assoc iated with bacte rial vagin osis (BV): Lacto bacil goldie (L. gasse ri, L. crisp atus and L. jense lissa), Gardn erell a vagin lucy, and Atopo bium vagin ae. A singl e quali tativ e resul t is repor harshil base on instr ument softw are to deter mine BV posit zarina or negat zarina statu s. The [facility] speci es group tests for C. albic ans, C. tropi calis , C. parap anthony is, C. dubli niens is. Testi ng is perfo rmed using the Trans cript ion Media harshil Ampli ficat ion metho d. Tests for Nazanin da glabr marian, Trich omona s vagin lucy, Chlam ydia trach omati s, and Neiss eria gonor doris e are also inclu ded in this panel . Not Available [facility] (Lab) [address] [facility], [place], [address], 03/13/2025 11:48:58 03/09/20 25 03/09/2025 IMAGE GUIDE D PAP AND HPV REGAR DLESS image guided Pap, HPV regardless of Pap result SEE RESULT S BELOW CASE REPOR T: Cytol ogy Gynec ologi nayana Repor t Case: [id number] Autho gus bullard Provi agata: Azeb Mackenzie, RON Colle cted: 03/09 1556 Order ing Locat ion: [place] [facility] Recei cesar: 03/10 0748 First Wang n: Deepali Hugo , CT Rescr een: Destini Simmons, CT Speci men: Wang oleary Pap - Image d, Cervi x STATE MENT OF ADEQU ACY: Satis facto ry for evalu ation Trans forma tion zone compo nent prese nt ----- ----- ----- ----- ----- ----- ----- ----- ----- ----- ----- ----- ----- ----- ----- ----- ----- ---- FINAL DIAGN OSIS: Negat zarina for Intra epith elial Leshaider ibarra or Katie lorenz ([facility]) . Shift in teresa sugge stive of bacte rial vagin osis. 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 COMME NT: Slide scree alistair manua lly due to rejec tion by the Thinp rep Imagi ng Syste m. CLINI NAYANA INFOR MATIO N: Menst rual Statu s: LMP (if appli cable ): Clini nayana Histo ry/Pr eviou s Pap: Type of Neopl alina (if appli cable ): Signi fican t Clini nayana Findi ngs: Other Histo ry: Hormo tawny (if appli cable ): PAP EDUCA SIERRA L NOTE: The Pap Test is a scree mamta test with an inher ent false negat zarina rate. Liqui d-bas ed sampl ing may decre ase, but will not elimi leonel, false negat zarina resul ts. A negat zarina resul t does not precl ude the prese nce and/o r devel opmen t of disea se, since the prese nce of abnor mal cells in the sampl e depen ds on the locat ion of the lesio n and sampl ing techn ique. Nadine nued regul ar scree mamta is the best metho d of cance r preve ntion . If repor harshil cytol ogic findi ng do not corre late with physi nayana and/o r histo rical findi ngs, furth er inves tigat ion is recom shane d, as clini lester warra nted. Not Available [facility] (Lab) [address], [place], [address], 03/13/2025 11:48:58 12/08/19 22 12/06/2021 US, obste tric, follo w-up No observ ation record ed. [email or web address] [facility] [address] [place] [address], [address], 12/14/2021 17:21:22 12/29/19 22 12/28/2021 US, obste tric, follo w-up No observ ation record ed. [email or web address] [place] [address], [place], [address], 12/28/2021 13:46:54 12/29/19 22 12/28/2021 US, obste tric, follo w-up No observ ation record ed. MELVIN Stokese [address], [place], [address], 12/28/2021 18:20:19 01/13/20 22 01/12/2022 US, obste tric, follo w-up No observ ation record ed. [email or web address] [place] [address], [place], [address], 01/12/2022 12:50:54 01/13/20 22 01/12/2022 US, obste tric, follo w-up No observ ation record ed. MELVIN Rodriguez [address], [place], [address], 03/13/2022 08:18:20 Result Notes None recorded. Problems Name Problem SNOMED Code Status Onset Date Resolution Date Notes Provider Name and Address Organization Details Recorded Time Shoulder dystocia - delivere d Active mild SD with first. Discusse d risks, offered CS, desires . Olena ortiz [facility] 2 14:02:41 History of loop electros urgical excision procedur e [id number] 102 Active CL 16 and 20w Olena ortiz [facility] 2 14:02:40 Shoulder dystocia - delivere d [id number] Completed mild SD with first. Discusse d risks, offered CS, desires . Olena ortiz [facility] 2 14:02:41 History of loop electros urgical excision procedur e [id number] 102 Completed CL 16 and 20w Olena yousifl null, [facility] 2 14:02:40 Robbie casiano user [id number] Completed encourag ed cessatio n Olena Slatervero ehl null, [facility] 2 14:02:41 Thromboc ytopenic disorder 635475021 Active plt 144. Rpt plt on 11/16. Rpt 38wks per SB!!!! Stable RPT L&D Olena Jaramillo ehl null, [facility] 2 14:02:40 Thromboc ytopenic disorder 516168538 Completed plt 144. Rpt plt on 11/16. Rpt 38wks per SB!!!! Stable RPT L&D Olena Jaramillo ehl null, [facility] 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 2 14:02:41 Complex cyst of left ovary [id number] 514826 Completed CA125 @ 16wk appt on 08/10! Recheck at anatomy scan 24wk, torsion precauti ons Olena Jaramillo ehl null, [facility] 2 14:02:41 Finding of growth 561901845 Completed 11/30 - EFW 10% & AC 7% with us. Level II u/s on 12/06 EFW 20% and AC 33% - rpt growth 3 wks [place] Clint l null, [facility] 2 14:02:41 Pregnanc y 64222285 Completed 202102/21/2022 Olena Jaramillo l null, [facility] 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 2 14:02:41 Group B Streptoc occus carrier [id number] 03 Completed 2021 [facility] null, [facility] 2 14:02:40 Problem Notes None recorded. Procedures Surgical History Date Name Laterality Status Provider Name and Address Organization Details Recorded Time 2 Date of Last Pap Smear completed [facility] 06/22/2021 10:40:12 9 Colposcopy completed [facility] 06/22/2021 17:27:03 9 Colposcopy completed [facility] 06/22/2021 17:29:13 9 LEEP completed [facility] 06/22/2021 17:29:20 Imaging Results None recorded. Procedure Notes None recorded. Medical Equipment None Reported. Allergies No known drug allergies Medications Name Sig Start Date Stop Date Status Note LastModified by Organization Details LastModified Time metronidazo le 0.75 % (37.5 mg/5 gram) vaginal gel Insert 1 applicato rful every day by vaginal route at bedtime for 5 days. 09/07 completed Not Available Not Available Not Available metronidazo le 500 mg tablet Take 1 tablet every 12 hours by oral route for 7 days. 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 03/09 completed Not Available Not Available Not Available C-Leonel DHA 28 mg iron-1 mg-200 mg capsule TAKE ONE CAPSULE BY MOUTH EVERY DAY active Not Available Not Available No t Available Vitals Date Recorded Body height Body mass index (BMI) Body weight Systolic And Diastolic Provider Name and Address Organization Details Last Updated DateTime 01/06/2022 165.74 cm 26.1 kg/m2 31503.594 46 g 118/70 mm[Hg] [facility] 01/06/2022 09:57:02 Date Recorded Body height Body mass index (BMI) Body weight Systolic And Diastolic Systolic And Diastolic Provider Name and Address Organization Details Last Updated DateTime 01/13/2022 165.74 cm 26.9 kg/m2 17686.55 631 g 146/65 mm[Hg] 132/80 mm[Hg] [facility] 10:53:49 Date Recorded Body weight Provider Name an d Address Organization Details Last Updated DateTime 02/20/2022 15038.32037 g Olena Franklin [facility] 02/21/2022 14:02:46 Date Recorded Body height Body mass index (BMI) Systolic And Diastolic Systolic And Diastolic Provider Name and Address Organization Details Last Updated DateTime 02/20/2022 165.74 cm 23.4 kg/m2 148/106 mm[Hg] 130/90 mm[Hg] [facility] 02/20/2022 14:24:30 Date Recorded Body height Body mass index (BMI) Body weight Systolic And Diastolic Provider Name and Address Organization Details Last Updated DateTime 03/09/2025 165.74 cm 22.1 kg/m2 33638.38 g 122/70 mm[Hg] Pati Mena [facility] 03/09/2025 12:52:21 Social History Question Answer Notes LastModified by Organizat ion Details LastModified Time Tobacco Smoking Status Former Smoker Kenzie Lagos [facility] 01/13/2022 10:19:21 Do You Have An Advance Directive? No Information not available 08/10/2021 Are You Blind Or Do You Have Difficulty Seeing? No [email or web address] Information not available 06/22/2021 What Is Your Level Of Caffeine Consumption? Occasional [email or web address] Information not available 06/22/2021 In The 14 Days Before Symptom Onset, Have You Had Close Contact With A Laboratory-confir med COVID-19 While That Case Was Ill? No [email or web address] Information not available 06/22/2021 In The 14 Days Before Symptom Onset, Have You Had Close Contact With A Person Who Is Under Investigation For COVID-19 While That Person Was Ill? No [email or web address] Information not available 06/22/2021 Have You Been To An Area Known To Be High Risk For COVID-19? No [email or web address] Information not available 06/22/2021 Are You Deaf Or Do You Have Serious Difficulty Hearing? No [email or web address] Information not available 06/22/2021 What Type Of Diet Are You Following? REGULAR [email or web address] Information not available 06/22/2021 What Is The Highest Grade Or Level Of School You Have Completed Or The Highest Degree You Have Received? [id number] Information not available 08/10/2021 Are There Any Guns Present In Your Home? No Information not available 08/10/2021 Have You Ever Been Counseled For Unhealthy Alcohol Use? No [email or web address] Information not available 01/13/2022 Do You Use Protection During Sex? No Information not available 08/10/2021 Do You Use Your Seat Belt Or Car Seat Routinely? Yes [email or web address] Information not available 06/22/2021 Do You Have Smoke And Carbon Monoxide Detectors In Your Home? Yes [email or web address] Information not available 06/22/2021 Do You Use Sunscreen Routinely? No Information not available 08/10/2021 Has Tobacco Cessation Counseling Been Provided? No [email or web address] Information not available 01/13/2022 Have You Used IV Drugs? No Information not available 08/10/2021 Do You Have Difficulty Walking Or Climbing Stairs? No [email or web address] Information not available 01/13/2022 Sex: Unknown Functional Status Question Answer Note LastModified by Organizat ion Details LastModified Time Do you use any illicit or recreational drugs? No [email or web address] Information not available 06/22/2021 Do you or have you ever used any other forms of tobacco or nicotine? No Information not available 01/13/2022 What is your level of alcohol consumption? None Information not available 08/10/2021 Are you able to walk independently without assistance or assistive devices? YESWOREST [email or web address] Information not available 06/22/2021 Are you able to care for yourself independently? 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 No [email or web address] Information not available 01/13/2022 What is your exercise level? Occasional [email or web address] Information not available 06/22/2021 Mental Status Question Answer Note LastModified by Organization D etails LastModified Time Do you feel stressed (tense, restless, nervous, or anxious, or unable to sleep at night)? [id number] Information not available 08/10/2021 Family History Relationship Description Onset Age of this Age Resolved Age Notes LastModified by Organization Details LastModified Time Mother Hypertensive disorder [email or web address] Not available 06/22 17:28:19 Medical History Condition Response Allergies (Food, seasonal, environmental ) N Other N Drug/Latex Allergies/Reactions N Blood Transfusion N Breast Cancer N Dermatologic Disorders N Lung Disease N Defects or Inherited Disease N Breast Problem N Gestational Diabetes N Hematologic disorders N Anesthesia Complications N History of STI N Deep Vein Thrombosis N Polycystic ovary syndrome N Anxiety Disorder N Autoimmune disease N Arthritis N Polyps N Infertility N Acid Reflux (GERD) N History of abnormal pap Y Cancer N Varicosities N Stroke N Neurologic/Epilepsy N Endometriosis N High Cholesterol N Fibromyalgia N Headaches N Kidney Disease N Heart Problems N Thyroid Problems N Kidney or Bladder Problems N GI Problems N Eating Disorder N Anemia N Art (IVF or FET) N Psychiatric Illness N Ovarian Cancer N Diabetes N Pulmonary (TB, Asthma) N Hepatitis/Liver Disease N No Past Medical History N Eczema N Urinary Tract Infection N Abuse/Domestic Violence N Asthma N Trauma/Violence N Depression/ depression N Heart Disease N Pre-Eclampsia N Hypertension N Osteoporosis N Thrombophilias N Gynecological History Statement/Question Response Abnormal Pap Y Date of Last Mammogram Flow Moderate Date of LMP 02/05/2025 Was last menstrual period normal Y STIs/STDs N HPV Vaccine N Colposcopy 04/30/2018 Duration of Flow (days) 5 Current Control Method None Age at First Child 24 Are cycles usually normal Y Frequency of Cycle (Q days) 30 Most Recent Bone Density Sexually Active? Y Menses Monthly Y Date of Last Pap Smear 06/22/2021 Sexual Problems? N LMP Approximate N Obstetrics History GPAL:G 2 P 2 0 0 2 Type Value Full Term 2 Living 2 Total 2 Past Encounters Encounter ID Performer Location Encounter Start Date Encounter Closed Date Diagnosis/Indication Diagnosis SNOMED-CT Code Diagnosis ICD10 Code Diagnosis IMO Codes Diagnosis Note [id number] [facility] [address],[place] [address] 06/22/2021 10:09:14 06/22/2021 11:27:27 Amenorrhea 26960187 N91.2 Gynecologi c examination 30347444 Z01.419 [id number] Johan Mead MD [facility] [address],[place] [address] 06/22/2021 10:13:55 06/22/2021 11:24:57 screening [id number] Z36.87 [id number] Shelly Garcia MD [facility] [address],[place] [address] 07/13/2021 09:59:55 07/13/2021 10:48:06 Routine care 694527466 Z34.91 Shoulder d ystocia - delivered 842232039 O66.0 History of loop electrosurgical excision procedure [id number] 9102 Z98.890 [id number] Shelly Garcia MD [facility] [address],[place] [address] 07/13/2021 10:05:19 07/13/2021 13:34:07 screening 028008748 Z36.82 O34.80 Z3A.12 [id number] Johan Mead MD [facility] [address],[place] [address] 08/10/2021 14:45:32 08/10/2021 15:21:17 Previous operation to cervix affecting 01526015 O34.42 O34.80 Z3A.16 [id number] Johan Mead MD [facility] [address],[place] [address] 08/10/2021 14:45:54 08/10/2021 15:46:45 Cyst of left ovary 6811932349 4006367 N83.202 screening 2437 98834 Z36.89 [id number] [facility] [address],[place] [address] 09/07/2021 10:39:25 09/07/2021 12:47:52 Routine care 788975685 Z34.92 [id number] Johan Mead MD [facility] [address],[place] [address] 09/07/2021 10:38:11 09/07/2021 11:52:01 screening for malformation 362033628 Z36.3 O34.80 O34.42 Z3A.20 [id number] Johan Mead MD [facility] [address],[place] [address] 10/05/2021 11:42:28 10/05/2021 12:40:53 condition affecting obstetrical care of mother 033353189 O35.8XX0 O34.80 Z3A.24 [id number] [facility] [address],[place] [address] 10/05/2021 11:44:32 10/05/2021 12:53:03 Routine care [id number] Z34.92 [id number] [facility] [address],[place] [address] 11/02/2021 12:21:33 11/02/2021 15:07:32 Routine care 087857925 Z34.92 [id number] Johan Mead MD [facility] [address],[place] [address] 11/16/2021 16:51:47 11/16/2021 17:54:09 Thrombocytopenic disorder 424926571 D69.6 Routine an tenatal care 224481081 Z34.83 [id number] Johan Mead MD [facility] [address],[place] [address] 11/30/2021 16:51:11 11/30/2021 18:01:45 Routine care 697442223 Z34.83 [id number] MD Tino Tovar [address],[place] [address] 11/30/2021 16:51:48 11/30/2021 18:19:43 Cyst of ovary in 5426736223 5507803 O34.80 O36.5930 Z3A.32 [id number] MD Tino Clement [address],[place] [address] 12/14/2021 10:24:19 12/14/2021 11:11:40 Routine care 334880838 Z34.91 [id number] MD Tino Clement [address],[place] [address] 12/28/2021 12:46:58 12/28/2021 14:23:12 Routine care 387689891 Z34.91 [id number] MD Tino Clement [address],[place] [address] 12/28/2021 12:51:16 12/28/2021 14:06:36 Small for gestational age fetus 092003924 O36.5930 O34.83 Z3A.36 [id number] MD Tino Clement [address],[place] [address] 01/06/2022 09:48:58 01/06/2022 10:30:00 Group B Streptococcus carrier 6001492466 103 Z22.330 Shoulder d ystocia - delivered 891587159 O66.0 Thrombocyt openic disorder 475605928 D69.6 Routine an tenatal care 298710501 Z34.91 [id number] Shelly Garcia MD [facility] [address],[place] [address] 01/12/2022 10:10:22 01/12/2022 11:08:54 Small for gestational age fetus 284297515 O36.5930 O34.83 Z3A.38 [id number] Shelly Garcia MD [facility] [address],[place] [address] 01/13/2022 10:18:55 01/16/2022 15:34:26 Group B Streptococcus carrier 4795477304 103 Z22.330 History of loop electrosurgical excision procedure 7609500588 9102 Z98.890 Shoulder d ystocia - delivered 910290477 O66.0 Thrombocyt openic disorder 846114596 D69.6 [id number] Shelly Gacria MD [facility] [address],[place] [address] 02/20/2022 14:14:16 02/20/2022 14:48:29 care 489046813 Z39.2 [id number] AGUSTINA Coreas [facility] [address],[place] [address] 03/09/2025 12:20:40 03/11/2025 10:07:34 Gynecologic examination 17607734 Z01.996 [id number] WWEBC - declinedPa p - done todaySTI screen - orderedRou cristin labs - PCPRTC in 1 yr or sooner if needed It is strongly advised to have an annual flu shot and up can obtain at most pharmacies . If you have not had a TDap shot in the last 10 years you should obtain one as well. Discussed with patient & provided with informatio n regarding the HPV vaccine if applicable . Encourage safe sexual practices, to use condoms and limit partners if not already in a monogamous relationsh ip. Do monthly self breast exams. BRCA testing is now available for patients with strong genetic history of female cancer. If interested contact the office. Engage in regular exercise. Avoid tobacco and illicit drugs. This lifestyle behavior pattern will lead to less health conditions and longer life span. If BMI greater than 25 dietary consult advised. Questions answered. Vaginal odor 722944441 N 89.8 629298 vaginitis/ STI screen sentrx sent for BV, r/b/a reviewedvu lvar care guidelines discussed Venereal d isease screening 576305150 Z11.3 33119 Discussed the various types of STIs, related symptoms and the potential consequenc es (including effects on fertility) of STI infections . Reviewed ways to limit exposure and prevention techniques . Time spent in visit is a total of 25 mins with at least 50% of visit consisting of counseling and review of plan of care. Sexually t ransmitted infectious disease 0877271 A64 Health Concerns Section Related Observation LastModified by Organization Detai ls LastModified Time None Recorded Concern Status LastModified by Organization Details LastModified Time None Recorded Advance Directives Directive N: Payers Insurance Date Sequence Insurance Name Policy Number Policy Avilez Covered Member ID Avilez Member ID Guarantor Name 03/09/2025 1 [facility] (MEDICAID HMO) [id number] [facility] [id number] [facility] 06/06/2021 1 *SELF PAY* evette Sanya 01/17/2022 1 [place] [facility] Katharina Segundo [id number] [facility] 03/09/2025 2 [facility] (MEDICAID HMO) [id number] [facility] [id number] [facility] Notes Date Note Type Note Provider Name and Address Organization Details Recorded Time 2 text/html Generic HPI TemplateReported by Patient Shelly Garcia MD [address], [place], [address], [facility] 01/06/2022 10:17:57 2 text/html Generic HPI TemplateReported by Patient Shelly Garcia MD [address], [place], [address], [facility] 01/13/2022 16:53:37 2 text/html VisitReported by Patient Patient is a 31yo presenting for a 4 week visit. She had a on 01/20 at 39.5 weeks GA. Baby Rigo was 6-15, doing well Doing well overall. . Normal lochia. Pain- none. Bowel and bladder function normal. Bethalto score 7 Period-no Annual due: june Concerns: none Shelly Garcia MD [address], [place], [address], [facility] 02/20/2022 14:47:48 5 text/html Annual GYNReported by PatientGenitourinary symptomsFor vagina, patient reportsfoul-smelling. For menstrual cycle, patient reportsnormal menses. For urinary symptoms, patient reportsno hematuriaandno incontinence. For vulva, patient reportsno genital lesion.Breast symptomsFor breast, patient reportsno breast pain,no breast lump, andno nipple discharge.ContraceptionFo r current contraception, patient reportsbirth control not practiced.Endocrine symptomsFor sexual complaints, patient reportsno sexual complaints,no pain during intercourse, andnormal libido. For menopausal symptoms, patient reportsno menopausal symptomsandnormal vaginal lubrication.Psychological symptomsFor psychological symptoms, patient reportsno depression,no anxiety, andno pmdd.Preventative measuresFor preventive measures, patient reportsencourage self breast examination,encourage regular exercise, andencourage no tobacco use.35yo wwelast pap 2021 wnlvaginal odor/discharge over the past few wksshe would like STI testing today AGUSTINA Coreas [address], [place], [address], [facility] 03/11/2025 09:04:11 OBGyn Episode Ob Episode Information Episode Created Date Number of Fetuses Patient Bloodtype Patient rh Status Prepregnancy Weight lbs Domestic Partner Domestic Partner Phone Father Name Cash Checker Status 07/14/19 22 1 O Positive 135 CLOSED Fetus Data First Name Last Name Admitted to NICU Weight (g) Sex Living Outcome Pediatric Complications Fetus ID Race Codes Race Delivery Type Rigo 3146.79 45 F true Full Term [id number] Vaginal Delivery Problems Problem Notes NIPT NL XXLevel II u/s 11/08 230 u/s only & 8/9 230P Level II u/s only Problem Name Start Date End Date Resolution Snomed Code Not e 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 Discussed risks, offered CS, desires . History of loop electrosurgical excision procedure [id number] CL 16 a nd 20w Marijuana user 482313440 encou raged cessation Thrombocytopenic disorder 625502188 plt 144. Rpt pl t on 11/16 - 129. Rpt 38wks per SB!!!! Stable RPT L&D Complex cyst of left ovary 13017116603071745 CA125 @ 16 wk appt on 08/10! Recheck at anatomy scan 24wk, torsion precautions Finding of growth 742403297 11/30 - EFW 10% & AC 7% with us. Level II u/s on 12/06 EFW 20% and AC 33% - rpt growth 3 wks Group B Streptococcus carrier 01/02/2022 [id number] Sweta Calculation Initial Sweta Date Initial Exam Date Initial Exam Provider Initial Ultrasound Date Last Menstrual Period Date Ultra Sound Weeks Gestation 01/22/2022 07/13/2021 06/22/2021 04/07/2021 9 Eighteen To Twenty Week Sweta Update Ultra Sound Date Fundal Height At Umbil Quickening Date Ultra Sound Latest Weeks Gestation Final Sweta Confirmed By Final Sweta Confirmed Date Final Sweta Date Ultra Sound Latest Days Gestation 0 [email or web address] 07/13/2021 01/23/20 22 0 Pre- Flowsheet Flowsheet Date 07/13/2021 Williamson Score Blood Edema Fundus Height Fundus Units Glucose Ketones Leukocytes Nitrite Labor Signs Protein Cervic Dilation Cervic Effacement Cervic Station neg trace none trace Type Weight in lbs Pre/Post Dialysis Refused Weight 136.799972121747 BP Diastolic BP Location Tested BP Systolic BP Type 83 119 Fetus Heart Rate Present A 150 Fetus Movement A No Comments Charniece is a 31yo who presents for care. Her last was uncomplicated except for a mild shoulder dystocia, which baby had no issues from. We discussed risks of SD including nerve and brain damage to baby. Since it was mild she prefers a vaginal delivery over CS. SHe had a LEEP 2016 with all normal paps since. We will do CL at 16 and 20w. She is trying to quit smoking MJ. She has not had flu shot. She had COVID vaccines, but not booster- due in a couple weeks, will get. PNL and NIPT today. NT to follow appointment. Flowsheet Date 07/13/2021 Williamson Score Blood Edema Fundus Height Fundus Units Glucose Ketones Leukocytes Nitrite Labor Signs Protein Cervic Dilation Cervic Effacement Cervic Station Type Weight in lbs Pre/Post Dialysis Refused BP Diastolic BP Location Tested BP Systolic BP Type Fetus Heart Rate Present Fetus Movement Comments Flowsheet Date 08/10/2021 Williamson Score Blood Edema Fundus Height Fundus Units Glucose Ketones Leukocytes Nitrite Labor Signs Protein Cervic Dilation Cervic Effacement Cervic Station Type Weight in lbs Pre/Post Dialysis Refused BP Diastolic BP Location Tested BP Systolic BP Type Fetus Heart Rate Present Fetus Movement Comments Flowsheet Date 08/10/2021 Williamson Score Blood Edema Fundus Height Fundus Units Glucose Ketones Leukocytes Nitrite Labor Signs Protein Cervic Dilation Cervic Effacement Cervic Station 16 Type Weight in lbs Pre/Post Dialysis Refused Weight 142.033953581219 BP Diastolic BP Location Tested BP Systolic BP Type 65 R arm 100 sitting Fetus Heart Rate Present A 145 Fetus Movement Comments persistent complex left ovar harsh cyst. Reviewed the images with the patient. Discussed ovarian cysts, etiology, natural history, treatment. Discussed CA 125 and alpha protein. Spent over 15 minutes discussing these complex issues. To obtain CA 125 today along with alpha protein. To contact the patient with those results. Flowsheet Date 09/07/2021 Williamson Score Blood Edema Fundus Height Fundus Units Glucose Ketones Leukocytes Nitrite Labor Signs Protein Cervic Dilation Cervic Effacement Cervic Station Type Weight in lbs Pre/Post Dialysis Refused BP Diastolic BP Location Tested BP Systolic BP Type Fetus Heart Rate Present Fetus Movement Comments Flowsheet Date 09/07/2021 Williamson Score Blood Edema Fundus Height Fundus Units Glucose Ketones Leukocytes Nitrite Labor Signs Protein Cervic Dilation Cervic Effacement Cervic Station neg none none trace Type Weight in lbs Pre/Post Dialysis Refused Weight 146.900276853918 BP Diastolic BP Location Tested BP Systolic BP Type 61 103 Fetus Heart Rate Present Fetus Movement A Yes Comments ovarian cyst septated?, revi ewed torsion precautions, no pain or cramping anatomy complete LVEIF, f/u 4 weeks ok for clartitin daily Flowsheet Date 10/05/2021 Williamson Score Blood Edema Fundus Height Fundus Units Glucose Ketones Leukocytes Nitrite Labor Signs Protein Cervic Dilation Cervic Effacement Cervic Station Type Weight in lbs Pre/Post Dialysis Refused BP Diastolic BP Location Tested BP Systolic BP Type Fetus Heart Rate Present Fetus Movement Comments Flowsheet Date 10/05/2021 Williamson Score Blood Edema Fundus Height Fundus Units Glucose Ketones Leukocytes Nitrite Labor Signs Protein Cervic Dilation Cervic Effacement Cervic Station neg none none trace Type Weight in lbs Pre/Post Dialysis Refused Weight 148.973827944799 BP Diastolic BP Location Tested BP Systolic BP Type 69 107 Fetus Heart Rate Present Fetus Movement A Yes Comments efw 27%, LT ovarian cyst 8.6 x7.8x6.3cm, precautions reviewed, f/u 4 weeks with gct and us Flowsheet Date 11/02/2021 Williamson Score Blood Edema Fundus Height Fundus Units Glucose Ketones Leukocytes Nitrite Labor Signs Protein Cervic Dilation Cervic Effacement Cervic Station neg none 30 none trace Type Weight in lbs Pre/Post Dialysis Refused Weight 151.799429543439 BP Diastolic BP Location Tested BP Systolic BP Type 64 105 Fetus Heart Rate Present A 144 Fetus Movement A Yes Comments patient is having some back pain and nausea. has mfm appt, no pain, precautions reviewed. gct today f/u2 weeks Flowsheet Date 11/16/2021 Williamson Score Blood Edema Fundus Height Fundus Units Glucose Ketones Leukocytes Nitrite Labor Signs Protein Cervic Dilation Cervic Effacement Cervic Station 27 Type Weight in lbs Pre/Post Dialysis Refused Weight 155.63859796094 BP Diastolic BP Location Tested BP Systolic BP Type 64 R arm 100 sitting Fetus Heart Rate Present A 148 Fetus Movement Comments size<dates - U/S, check plat elets today Flowsheet Date 11/30/2021 Williamson Score Blood Edema Fundus Height Fundus Units Glucose Ketones Leukocytes Nitrite Labor Signs Protein Cervic Dilation Cervic Effacement Cervic Station 32 Type Weight in lbs Pre/Post Dialysis Refused Weight 156.026390705866 BP Diastolic BP Location Tested BP Systolic BP Type 70 R arm 109 sitting Fetus Heart Rate Present A 145 Fetus Movement A Yes Comments ask patient to reconsider va ginal . I again emphasized the danger of a vaginal and a previous shoulder dystocia. I informed her that a delivery would be safer for the baby. MFM visit next week to follow 9 cm cyst. Of the ovary. Flowsheet Date 11/30/2021 Williamson Score Blood Edema Fundus Height Fundus Units Glucose Ketones Leukocytes Nitrite Labor Signs Protein Cervic Dilation Cervic Effacement Cervic Station Type Weight in lbs Pre/Post Dialysis Refused BP Diastolic BP Location Tested BP Systolic BP Type Fetus Heart Rate Present Fetus Movement Comments Flowsheet Date 12/14/2021 Williamson Score Blood Edema Fundus Height Fundus Units Glucose Ketones Leukocytes Nitrite Labor Signs Protein Cervic Dilation Cervic Effacement Cervic Station neg trace 31 none trace Type Weight in lbs Pre/Post Dialysis Refused Weight 159.566345778776 BP Diastolic BP Location Tested BP Systolic BP Type 72 112 Fetus Heart Rate Present A 145 Fetus Movement A Yes Comments Doing well, great FM. Growth and dopplers next visit. GBS next visit. Precautions given. Flowsheet Date 12/28/2021 Williamson Score Blood Edema Fundus Height Fundus Units Glucose Ketones Leukocytes Nitrite Labor Signs Protein Cervic Dilation Cervic Effacement Cervic Station Type Weight in lbs Pre/Post Dialysis Refused BP Diastolic BP Location Tested BP Systolic BP Type Fetus Heart Rate Present Fetus Movement Comments Flowsheet Date 12/28/2021 Williamson Score Blood Edema Fundus Height Fundus Units Glucose Ketones Leukocytes Nitrite Labor Signs Protein Cervic Dilation Cervic Effacement Cervic Station neg none 34 none trace 0cm 0% Type Weight in lbs Pre/Post Dialysis Refused Weight 158.214105406537 BP Diastolic BP Location Tested BP Systolic BP Type 69 115 Fetus Heart Rate Present Fetus Movement A Yes Comments Doing well. EFW 15%. Would p robably like IOL. Will schedule next visit. Last delivery 2013. GBS done and discussed. REpeat plt 38w. Flowsheet Date 01/06/2022 Williamson Score Blood Edema Fundus Height Fundus Units Glucose Ketones Leukocytes Nitrite Labor Signs Protein Cervic Dilation Cervic Effacement Cervic Station trace none 34 none trace 0cm 70% -3 Type Weight in lbs Pre/Post Dialysis Refused Weight 158.048485852771 BP Diastolic BP Location Tested BP Systolic BP Type 70 118 Fetus Heart Rate Present A 140 Fetus Movement A Yes Comments Doing well. Good FM. Occasio nal contractions. GBS pos, discussed. Precautions given. Repeat platelets today. Repeat growth again next week for 15% last time. She prefers to wait for IOL until around SWETA if undelivered. Flowsheet Date 01/12/2022 Williamson Score Blood Edema Fundus Height Fundus Units Glucose Ketones Leukocytes Nitrite Labor Signs Protein Cervic Dilation Cervic Effacement Cervic Station Type Weight in lbs Pre/Post Dialysis Refused BP Diastolic BP Location Tested BP Systolic BP Type Fetus Heart Rate Present Fetus Movement Comments Flowsheet Date 01/13/2022 Williamson Score Blood Edema Fundus Height Fundus Units Glucose Ketones Leukocytes Nitrite Labor Signs Protein Cervic Dilation Cervic Effacement Cervic Station neg trace 36 none trace 1cm 70% -3 Type Weight in lbs Pre/Post Dialysis Refused Weight 163.752085346616 BP Diastolic BP Location Tested BP Systolic BP Type 65 146 80 132 Fetus Heart Rate Present A 140 Fetus Movement A Yes Comments Doing ok, getting very uncom fortable. Plt 128 last week, repeat today. Cervix 1cm with band cw LEEP. Ctx today 5-10min, precautions given. Will schedule IOL next week per pt request. GBS pos. Flowsheet Date 02/20/2022 Williamson Score Blood Edema Fundus Height Fundus Units Glucose Ketones Leukocytes Nitrite Labor Signs Protein Cervic Dilation Cervic Effacement Cervic Station Type Weight in lbs Pre/Post Dialysis Refused Weight 142.689477640681 BP Diastolic BP Location Tested BP Systolic BP Type 106 148 90 130 Fetus Heart Rate Present Fetus Movement Comments Menstrual History Last Menstrual Date Menses Monthly On Bcp Conception Prior Menses Frequency Hcg Plus Date Menarche Onset Age 1204/07/2021 Genetic Screening And Infection History Question Response Note Mental Retardation/Autism false Patient's Age Will Be 35 Years Or Older At Estim ated Date of Delivery false Thalassemia (Swedish, Gibraltarian, Mediterranean, Or Background): MCV < 80 false Neural Tube Defect (Meningomyelocele, Spina Bifi da, Or Anencephaly) false Congenital Heart Defect false Down Syndrome false [place] (eg, Mandaeism, Cajun, Chinese-Treasure) f alse King Disease false Sickle Cell Disease Or Trait () false Hemophilia Or Other Blood Disorders false Muscular Dystrophy false Cystic Fibrosis false C[place]'s Chorea false Intellectual Disability/Autism false If Yes, Was Person Tested For Fragile X? false Other Inherited Genetic Or Chromosomal Disorder false Maternal Metabolic Disorder (eg, Type 1 Diabetes , PKU) false Patient Or Baby's Father Had A Child With Defects Not Listed Above false Recurrent Loss, Or A Stillbirth false Medications (including Suppl ements, Vitamins, Herbs, OTC Drugs), Illicit/Recreational Drugs, Alcohol true mj If Yes, Agent(s) And Strength/Dosage false Any Other Genetic History false Live With Someone With TB Or Exposed To TB false Patient Or Partner Has History Of Genital Herpes false Rash Or Viral Illness Since Last Menstrual Perio d false History Of STD, Gonorrhea, Chlamydia, HPV, Syphi lis false Other Infection History false History of HIV false History of Hepatitis false Prior GBS-infected child false Hemoglobinopathy Or Carrier false Other Structural Defect false Recent Travel History Outside of Country false Delivery Information Delivery Date Delivery Type Labor Anesthesia Weeks Gestation Incision Type Labor Labor Length Hrs Delivered By Post Complications Tubal Sterilization Discharge Date Comments [facility]-Ep idural 39.5 false Shelly Garcia MD Gbs+ & Hx Thrombocy topenia Discharge Information Feeding Method Contraceptive Method Maternal HG B and HCT Levels Breast Ob Episode Information Episode Created Date Number of Fetuses Patient Bloodtype Patient rh Status Prepregnancy Weight lbs Domestic Partner Domestic Partner Phone Father Name Cash Checker Status 06/22/19 22 1 CLOSED Fetus Data First Name Last Name Admitted to NICU Weight (g) Sex Living Outcome Pediatric Complications Fetus ID Race Codes Race Delivery Type 3345.24 1 F Full Term [id number] Vaginal Delivery Sweta Calculation Initial Sweta Date Initial Exam Date Initial Exam Provider Initial Ultrasound Date Last Menstrual Period Date Ultra Sound Weeks Gestation 0 Eighteen To Twenty Week Sweta Update Ultra Sound Date Fundal Height At Umbil Quickening Date Ultra Sound Latest Weeks Gestation Final Sweta Confirmed By Final Sweta Confirmed Date Final Sweta Date Ultra Sound Latest Days Gestation 0 0 Menstrual History Last Menstrual Date Menses Monthly On Bcp Conception Prior Menses Frequency Hcg Plus Date Menarche Onset Age Delivery Information Delivery Date Delivery Type Labor Anesthesia Weeks Gestation Incision Type Labor Labor Length Hrs Delivered By Post Complications Tubal Sterilization Discharge Date Comments 4 41 Discharge Information Feeding Method Contraceptive Method Maternal HG B and HCT Levels
--- OUTSIDE RECORDS SUMMARY | 2025-03-20 08:34 | XMS_ITS | Clinical Summary ---
Author Organization [facility] Address [address] [place] [address] Phone Care Team Providers Care Perishable Fruit Inspector Name Role Phone Provider, None Primary Care Provider Unavailabl e Allergies No known active allergies Medications No known medications Family History Medical History Relation Name Comments No Known Problems Father Heart Disease Mother Hypertension Mother Relation Name Status Comments Father Alive Mother Alive Social History Tobacco Use Types Packs/Day Years Used Date Smoking Tobacco: Never Smokeless Tobacco: Never Alcohol Use Standard Drinks/Week Comments Yes 0 (1 standard drink = 0.6 oz pur e alcohol) occasionally Sexually Active Control Partners Comments Never Comments Unknown Sex and Gender Information Value Date Recorded Sex Assigned at Not on file 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 Gender Identity Not on file Sexual Orientation Not on file Last Filed Vital Signs Vital Sign Reading Time Taken Comments Blood Pressure 117/65 07/20/2017 11:25 AM CDT Pulse 53 07/20/2017 11:25 AM CDT Temperature 36.6 C (97.8 F) 07/20/2017 11:25 AM CDT Respiratory Rate 16 07/20/2017 11:25 AM CDT Oxygen Saturation 98% 07/20/2017 11:25 AM CDT Inhaled Oxygen Concentration - - Weight 55.8 kg (123 lb) 07/13/2017 9:00 AM CDT Height 170.2 cm (5' 7) 07/13/2017 9:00 AM CDT Body Mass Index 19.26 07/13/2017 9:00 AM CDT Plan of Treatment Not on file Insurance MEDICAID [place] Care Teams Perishable Fruit Inspector Relationship Specialty Start Date End Date Provider, None [place] PCP - General 07/18/17
--- OUTSIDE RECORDS SUMMARY | 2025-03-20 08:34 | XMS_ITS | Clinical Summary ---
Author Organization [facility] Address [address] [place] [address] Care Team Providers Care Compound Machine Operator Name Role Phone Unavailable Primary Care Provider Unavailabl e Source Comments [facility],non-owned Affiliates and Associated Physician Practices is amultiple site organization consisting of ambulatory clinics and hospital sitesin [place], [place], [place] and [place]. This disclosure is being madepursuant to the Care Everywhere program and may not contain all information available regarding this patient. Last updated 18.[facility] [employer] Allergies No known active allergies Social History Tobacco Use Types Packs/Day Years Used Date Smoking Tobacco: Never Assessed Comments No Sex and Gender Information Value Date Recorded Sex Assigned at Not on file Legal Sex Female 2:11 PM CDT Gender Identity Not on file Sexual Orientation Not on file Plan of Treatment Health Maintenance Due Date Last Done Comments HIV SCREENING 2005 HEPATITIS C SCREENING 03/03/2008 DTAP/TDAP/TD VACCINES (1 - Tdap) 2009 HEPATITIS B VACCINE (1 of 3 - 19+ 3-dose series) 2009 Cervical Cancer Screening 2011 PAP SMEAR 2011 HPV VACCINE (1 - 3-dose SCDM series) 2017 PAP with HPV 2020 DEPRESSION SCREENING 04/30/2024 COVID-19 VACCINE (3 - 2024-2 6 season) 2024 12/28/2020, 11/29/2020 INFLUENZA VACCINE (#1) 2024 ZOSTER VACCINE (1 of 2) 2040 HIB VACCINE Aged Out No longer eligi ble based on patient's age to complete this topic MENINGOCOCCAL (Group B) VACCINE SHARED DECISION-MAKING Aged Out No longer eligible based on patient's age to complete this topic MENINGOCOCCAL GROUPS A/C/Y/W VACCINE Aged Out No longer eligible b ased on patient's age to complete this topic PNEUMOCOCCAL VACCINE Aged Out No long er eligible based on patient's age to complete this topic Insurance [place] [address]
--- OUTSIDE RECORDS SUMMARY | 2025-03-20 08:34 | XMS_ITS | Continuity of Care Document ---
Author Organization [facility] [place] Address [address] [place] [address] Assessment Encounter Date Assessment Date Assessment LastModified by Organization Details LastModified Time 03/09/2025 03/09/2025 Annual gynecological exam performed. Patient will come back in a year unless there are new symptoms. [email or web address] Not available 03/09/2025 12:51:21 Plan of Treatment Reminders Order Date Submit Date Provider Last Modified By Organization Details Last Modified Time Details Appointments None recorded. Lab hbcab (hepatitis B core Ab) igm, serum 2024 025 [facility] (Lab), [address], [place], [address], 5 04:07:56 HBsAg (hepatitis B surface Ag), serum 2024 025 [facility] (Lab), [address], [place], [address], 5 04:07:56 hepatitis C virus Ab, serum 2024 025 [facility] (Lab), [address], [place], [address], 5 04:07:57 HIV 1+2 AB + HIV 1 p24 Ag, qualitative immunoassay , serum 2024 025 [facility] (Lab), [address] [place], [address], 5 04:07:57 RPR (rapid plasma reagin), serum 2024 025 [facility] (Lab), [address], [place], [address], 5 04:07:57 unlisted lab - women's health swab plus, YISEL 2024 025 [facility] (Lab), [address], [place], [address], 11:48:58 pap, IG + HR HPV - HPV regardless but if HPV is positive need subtyping 16,18/45 2024 025 [facility] (Lab), [address], [place], [address], 11:48:58 Referral None recorded. Procedures None recorded. Surgeries None recorded. Imaging None recorded. Medication Orders metronidazo le 500 mg tablet 2024 [id number], [address], [place], [place], [id number], 13:10:35 Patient TargetsNo targets recorded. Patient InstructionsNo instructions recorded. Reason for Referral None Reported. Results Created Date Observation Date Name Description Value Unit Range Abnormal Flag Note LastModifiedBy Organization Detail LastModifiedTime 03/09/2003/09/2025 WOMEN 'S HEALT H SWAB PLUS, YISEL bacterial vaginosis (bv), tma Positi ve negati ve abnormal Not Available [facility] (Lab) [address], [place], [address], 03/13/2025 11:48:58 03/09/20 25 03/09/2025 WOMEN 'S HEALT H SWAB PLUS, YISEL denisa species, tma Negati ve negati ve Not Available [facility] (Lab) [address] [place], [address], 03/13/2025 11:48:58 03/09/20 25 03/09/2025 WOMEN 'S HEALT H SWAB PLUS, YISEL denisa glabrata, tma Negati ve negati ve Not Available [facility] (Lab) [address], [place], [address], 03/13/2025 11:48:58 03/09/20 25 03/09/2025 WOMEN 'S HEALT H SWAB PLUS, YISEL trichomonas vaginalis, tma Negati ve negati ve Not Available [facility] (Lab) [address], [place], [address], 03/13/2025 11:48:58 03/09/2003/09/2025 WOMEN 'S HEALT H SWAB PLUS, YISLE chlamydia trachomatis, PCR Instr ument error Not Available [facility] (Lab) [address] [place], [address], 03/13/2025 11:48:58 03/09/2003/09/2025 WOMEN 'S HEALT H [...] trach omati s, and Neiss eria gonor rhoea e are also inclu ded in this panel . Not Available [facility] (Lab) [address], [place], [address], 03/13/2025 11:48:58 03/09/20 25 03/09/2025 IMAGE GUIDE D PAP AND HPV REGAR DLESS image guided Pap, HPV regardless of Pap result SEE RESULT S BELOW CASE REPOR T: Cytol ogy Gynec ologi nayana Repor t Case: [id number] Autho gus bullard Provi agata: Azeb Mackenzie, RON Colle cted: 03/09 1556 Order ing Locat ion: [place] Path[facility] log[facility] Recei cesar: 03/10 0748 First Scree n: Deepali Hugo , CT Rescr een: Destini Simmons, CT Speci men: Wang vazquezg Pap - Image d, Cervi x STATE MENT OF ADEQU ACY: Satis facto ry for evalu ation Trans forma tion zone compo nent prese nt ----- ----- ----- ----- ----- ----- ----- ----- ----- ----- ----- ----- ----- ----- ----- ----- ----- ---- FINAL DIAGN OSIS: Negat zarina for Intra epith elial Lesio n or Katie lorenz ([facility]) . Shift in teresa sugge stive of bacte rial vagin osis. 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 Not Available [facility] (Lab) [address], [place], [address], 03/13/2025 11:48:58 Result Notes None recorded. Problems Name Problem SNOMED Code Status Onset Date Resolution Date Notes Provider Name and Address Organization Details Recorded Time Shoulder dystocia - delivere d 078220209 Active mild SD with first. Discusse d risks, offered CS, desires . Olena Jaramillo [facility], [facility] 2 14:02:41 History of loop electros urgical excision procedur e 55017034821 102 Active CL 16 and 20w Olena Jaramillo ehl null, [facility] 2 14:02:40 Shoulder dystocia - delivere d 074355412 Completed mild SD with first. Discusse d risks, offered CS, desires . Olena yousifl null, [facility] 2 14:02:41 History of loop electros urgical excision procedur e 24807097007 102 Completed CL 16 and 20w Olena Jaramillo ehl null, [facility] 2 14:02:40 Robbie a user 483596817 Completed encourag ed cessatio n Olena yousifl null, [facility] 2 14:02:41 Thromboc ytopenic disorder 621470370 Active plt 144. Rpt plt on 11/16. Rpt 38wks per SB!!!! Stable RPT L&D Olena Jaramillo ehl null, [facility] 2 14:02:40 Thromboc ytopenic disorder 183690238 Completed plt 144. Rpt plt on 11/16. Rpt 38wks per SB!!!! Stable RPT L&D Olena yousifl null, [facility] 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 2 14:02:41 Complex cyst of left ovary 89015750067 630659 Completed CA125 @ 16wk appt on 08/10! Recheck at anatomy scan 24wk, torsion precauti ons Olena Clint yousifl null, [facility] 2 14:02:41 Finding of growth 165948572 Completed 11/30 - EFW 10% & AC 7% with us. Level II u/s on 12/06 EFW 20% and AC 33% - rpt growth 3 wks Olena Slatervero l null, [facility] 2 14:02:41 Pregnanc y 33433446 Completed 202102/21/2022 Olena Slatervero l null, [facility] 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 2 14:02:41 Group B Streptoc occus carrier 12566711012 03 Completed 2021 Olena Nohemyvero l null, [facility] 2 14:02:40 Problem Notes None recorded. Procedures Surgical History Date Name Laterality Status Provider Name and Address Organization Details Recorded Time 2 Date of Last Pap Smear completed [facility] 06/22/2021 10:40:12 9 Colposcopy completed [facility] 06/22/2021 17:27:03 9 Colposcopy completed [facility] 06/22/2021 17:29:13 9 LEEP completed [facility] 06/22/2021 17:29:20 Imaging Results None recorded. [...] Not Available Not Available Not Avai lable MIXING PAN TENDER-PNV-DHA 28 mg iron-1 mg-200 mg capsule Take [...] Updated DateTime 03/09/2025 165.74 cm 22.1 kg/m2 48675.38 g 122/70 mm[Hg] Pati Mena [facility] 03/09/2025 12:52:21 Social History Question Answer Notes LastModified by Organizat ion Details LastModified Time Tobacco Smoking Status Former Smoker Kenzie Lagos diana, [facility] 01/13/2022 10:19:21 Do You Have An Advance Directive? No Information not available 08/10/2021 Are You Blind Or Do You Have Difficulty Seeing? No [email or web address] Information not available 06/22/2021 What Is Your Level Of Caffeine Consumption? Occasional [email or web address] Information not available 06/22/2021 In The 14 Days Before Symptom Onset, Have You Had Close Contact With A Laboratory-confir med COVID-19 While That Case Was Ill? No [email or web address] Information not available 06/22/2021 In The 14 Days Before Symptom Onset, Have You Had Close Contact With A Person Who Is Under Investigation For COVID-19 While That Person Was Ill? No [email or web address] Information not available 06/22/2021 Have You Been To An Area Known To Be High Risk For COVID-19? No [email or web address] Information not available 06/22/2021 Are You Deaf Or Do You Have Serious Difficulty Hearing? No [email or web address] Information not available 06/22/2021 What Type Of Diet Are You Following? REGULAR [email or web address] Information not available 06/22/2021 What Is The Highest Grade Or Level Of School You Have Completed Or The Highest Degree You Have Received? [id number] Information not available 08/10/2021 Are There Any Guns Present In Your Home? No Information not available 08/10/2021 Have You Ever Been Counseled For Unhealthy Alcohol Use? No [email or web address] Information not available 01/13/2022 Do You Use Protection During Sex? No Information not available 08/10/2021 Do You Use Your Seat Belt Or Car Seat Routinely? Yes [email or web address] Information not available 06/22/2021 Do You Have Smoke And Carbon Monoxide Detectors In Your Home? Yes [email or web address] Information not available 06/22/2021 Do You Use Sunscreen Routinely? No Information not available 08/10/2021 Has Tobacco Cessation Counseling Been Provided? No [email or web address] Information not available 01/13/2022 Have You Used IV Drugs? No Information not available 08/10/2021 Do You Have Difficulty Walking Or Climbing Stairs? No [email or web address] Information not available 01/13/2022 Sex: Unknown Functional Status Question Answer Note LastModified by Organizat ion Details LastModified Time Do you use any illicit or recreational drugs? No [email or web address] Information not available 06/22/2021 Do you or have you ever used any other forms of tobacco or nicotine? No [email or web address] Information not available 01/13/2022 What is your level of alcohol consumption? None Information not available 08/10/2021 Are you able to walk independently without assistance or assistive devices? [email or web address] Information not available 06/22/2021 Are you able to care for yourself independently? 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 No [email or web address] Information not available 01/13/2022 What is your exercise level? Occasional [email or web address] Information not available 06/22/2021 Mental Status Question Answer Note LastModified by Organization D etails LastModified Time Do you feel stressed (tense, restless, nervous, or anxious, or unable to sleep at night)? [id number] [email or web address] Information not available 08/10/2021 Family History Relationship Description Onset Age of this Age Resolved Age Notes LastModified by Organization Details LastModified Time Mother Hypertensive disorder [email or web address] Not available 06/22 17:28:19 Medical History Condition Response Allergies (Food, seasonal, environmental ) N Other N Breast Cancer N Drug/Latex Allergies/Reactions N Blood Transfusion N Dermatologic Disorders N Lung Disease N Defects or Inherited Disease N Breast Problem N Gestational Diabetes N Hematologic disorders N Anesthesia Complications N History of STI N Deep Vein Thrombosis N Polycystic ovary syndrome N Anxiety Disorder N Autoimmune disease N Arthritis N Infertility N Polyps N Acid Reflux (GERD) N History of abnormal pap Y Cancer N Stroke N Varicosities N Neurologic/Epilepsy N Endometriosis N High Cholesterol N Headaches N Fibromyalgia N Kidney Disease N Heart Problems N Kidney or Bladder Problems N Thyroid Problems N GI Problems N Eating Disorder [...] ICD10 Code Diagnosis IMO Codes Diagnosis Note [id number] AGUSTINA Coreas [address] [address] 03/09/2025 12:20:40 03/11/2025 10:07:34 Gynecologic examination 07726685 Z01.097 [id number] WWEBC - declinedPa p - done todaySTI [...] dietary consult advised. Questions answered. Vaginal odor 400029745 N 89.8 899256 vaginitis/ STI screen sentrx sent for BV, r/b/a reviewedvu lvar care guidelines discussed Venereal d isease screening 550368364 Z11.3 26104 Discussed the various types of STIs, related symptoms and the potential consequenc es (including effects on fertility) of STI infections . Reviewed ways to limit exposure and prevention techniques . Time spent in visit is a total of 25 mins with at least 50% of visit consisting of counseling and review of plan of care. Sexually t ransmitted infectious disease 5855346 A64 Health Concerns Section Related Observation LastModified by Organization Detai ls LastModified Time None Recorded Concern Status LastModified by Organization Details LastModified Time None Recorded Payers Encounter Date Sequence Insurance Name Policy Number Policy Avilez Covered Member ID Avilez Member ID Guarantor Name 03/09/2025 1 [facility] (MEDICAID HMO) [id number] Katharina Segundo [id number] [facility] 03/09/2025 2 [facility] (MEDICAID HMO) [id number] [facility] [id number] [facility] Notes Date Note Type Note Provider Name and Address Organization Details Recorded Time 5 text/html Annual GYNReported by PatientGenitourinary symptomsFor [...] testing today AGUSTINA Coreas [address], [place], [address], [facility] 03/11/2025 09:04:11 OBGyn Episode No OBEpisode recorded.
[2025-03-20 08:37] VITALS: BP 112/81; PULSE 66; RESP 16; TEMP 36.6; O2SAT 100
[2025-03-20 08:40] VITALS: O2SAT 100
[2025-03-20 08:53] LABS: Hematocrit 41.9 % (37.0-47.0); Hemoglobin 13.6 g/dL (12.0-15.0); Immature Granulocyte Percent A 0.4 % (0-0.5); Lymphocytes Absolute Auto 0.87 K/mm3 (0.9-3.2); Mean Corpuscular HGB Conc 32.5 g/dl (32-36); Mean Corpuscular Hemoglobin 26.3 pg (26-34); Mean Corpuscular Volume 81.0 fl (80-100); Nucleated Red Blood Cells Absolute Auto 0.000 K/mm3 (0.0-0.012); Nucleated Red Blood Cells Perc 0.0 % (0.0-0.2); Platelet Count Result 201 k/mm3 (150-375); Red Blood Count 5.17 M/mm3 (4.2-5.4); White Blood Count 8.4 K/mm3 (4.5-10.0)
[2025-03-20 09:07] LABS: Alanine Aminotransferase 19 U/L (6-35); Albumin Level 4.6 g/dL (3.5-5.1); Alkaline Phosphatase 39 U/L (38-126); Anion Gap 12 mmol/L (4-12); Aspartate Amino Transferase 31 U/L (14-36); Bilirubin,Total 0.8 mg/dL (0.2-1.3); Blood Urea Nitrogen 11 mg/dL (7-17); Calcium 9.4 mg/dL (8.4-10.2); Carbon Dioxide 23 mmol/L (22-30); Chloride 98 mmol/L (98-107); Estimated CRCL calculation 79 ml/min; Estimated Glomerular Filt Rate > 60; Glucose 79 mg/dL (65-110); Lipase 43 U/L (23-300); Potassium 3.7 mmol/L (3.4-5.0); Sodium 133 mmol/L (137-145); Total Protein 8.2 g/dL (6.3-8.2)
[2025-03-20 09:08] LABS: INR 1.1; Prothrombin Time 14.0 Seconds (11.1-14.7)
[2025-03-20 09:09] LABS: Partial Thromboplastin Time 30.6 Seconds (22.3-36.8)
--- OUTSIDE RECORDS SUMMARY | 2025-03-20 09:11 | XMS_ITS | Clinical Summary ---
Author Organization [facility] Address [address] [place] [address] Care Team Providers Care Insurance Service Representative Name Role Phone Unavailable Primary Care Provider Unavailabl e Source Comments [facility],non-owned Affiliates and Associated Physician Practices is amultiple site organization consisting of ambulatory clinics and hospital sitesin [place], [place], [place] and [place]. This disclosure is being madepursuant to the Care Everywhere program and may not contain all information available regarding this patient. Last updated 18.[facility] [employer] Allergies No known active allergies Social History [...] patient's age to complete this topic [place] [address] [place] [id number]
--- OUTSIDE RECORDS SUMMARY | 2025-03-20 09:11 | XMS_ITS | Clinical Summary ---
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
[2025-03-20 09:18] LABS: Troponin I < 0.012 ng/mL (0.000-0.034)
[2025-03-20] MEDS: ONDANSETRON INJ 4 MG/2 ML VIAL IV PUSH (09:48)
[2025-03-20] MEDS: SODIUM CHLORIDE 0.9% IV 1,000 ML 999 ML IV CONT (09:48)
[2025-03-20] MEDS: KETOROLAC 30 MG/ML VIAL (*BKC) IV PUSH (09:48)
--- NOTE | 2025-03-20 10:23 | ED.GENADULT ---
HPI - General Adult General Chief complaint: Chest Pain Stated complaint: chest [id number], nausea, ETOH, SOB Time Seen by Provider: 03/20/25 08:40 History of Present Illness HPI narrative: Patient is a 35-year-old female who presents ER with nausea vomiting as well as some chest discomfort. This been ongoing for 1 week. She started Diflucan 1 week ago and drink alcohol that day and then started having vomiting. The vomiting has persisted despite her quitting alcohol. She has 1 tab left to take. No fevers or chills. No diarrhea. She has mild reports of reflux. No blood in her stool or emesis. Chest pain is achy and below the left breast. Worse with physical movements but not necessarily with exertion. No pain with deep breath. Related Data Home Medications ?Medication ?Instructions ?Recorded ?Confirmed ?Last Taken ?Type vit no.95-ferrous 1 tablet PO DAILY 01/20/22 01/20/22 01/18/22 History fumarate 28 mg-folic acid 800 mcg tablet () Allergies Allergy/AdvReac Type Severity Reaction Status Date / Time No Known Allergies Allergy Verified 01/17/22 15:54 Review of Systems Review of Systems: All systems reviewed & are unremarkable except as noted in HPI and below Constitutional: Constitutional: Reports no additional constitutional complaints ENT: Reports system reviewed and no additional complaints, except as documented Cardiovascular: Cardiovascular: Reports no additional cardiovascular complaints Respiratory: Respiratory: Reports no additional respiratory complaints Gastrointestinal: Gastrointestinal: Reports no additional gastrointestinal complaints [facility], [facility] Past Medical History Medical History (Updated 03/20/25 @ 12:58 by Nixon Cuello MD) Healthy female adult Surgical History Surgical History (Updated 03/20/25 @ 10:24 by Nixon Cuello MD) No pertinent past surgical history Family History Family History (Updated 01/17/22 @ 15:55 by Priti Dangelo RN) Other Unknown family medical history Social History Social History Smoking status: Never smoker Second hand tobacco smoke exposure: Yes (smokes marijuana) Substance use: current Last use: 2 weeks ago Spiritual care concerns: No Exam Narrative: GENERAL: Well-appearing, well-nourished, and in no acute distress. HEAD: Normocephalic, atraumatic. ENT: Mucous membranes moist. CHEST: Clear to auscultation. No respiratory distress. HEART: Regular rate and rhythm. Normal peripheral pulses. ABDOMEN: Soft, nontender, nondistended. EXTREMITIES: Normal range of motion. No edema. SKIN: Warm, dry, no rash. NEURO: Alert and oriented x3. PSYCH: Normal mood and affect. Course Course Emergency Course: Patient resting comfortably in feels improved after fluids, Toradol, Zofran. Discussed lab results which were normal. Appropriate for discharge home with antiemetics and famotidine. Vital Signs Vital signs: Vital Signs Temperature 97.9 F 03/20/25 08:37 Pulse Rate 66 03/20/25 08:37 Respiratory Rate 16 03/20/25 08:37 Blood Pressure 112/81 03/20/25 08:37 Pulse Oximetry 100 03/20/25 08:37 Oxygen Delivery Room Air 03/20/25 08:37 Temperature 97.9 F 03/20/25 08:37 Pulse Rate 60 03/20/25 12:43 Respiratory Rate 19 03/20/25 12:43 Blood Pressure 118/75 03/20/25 12:43 Pulse Oximetry 100 03/20/25 12:43 Oxygen Delivery Room Air 03/20/25 08:40 Medical Decision Making Differential Diagnosis Differential Diagnosis: Acute coronary syndrome, pulmonary embolism, pneumonia, pneumothorax, pancreatitis, GERD, medication side effect Vital Signs Vital Signs: Vital Signs Temperature 97.9 F 03/20/25 08:37 Pulse Rate 66 03/20/25 08:37 Respiratory Rate 16 03/20/25 08:37 Blood Pressure 112/81 03/20/25 08:37 Pulse Oximetry 100 03/20/25 08:37 Oxygen Delivery Room Air 03/20/25 08:37 Temperature 97.9 F 03/20/25 08:37 Pulse Rate 60 03/20/25 12:43 Respiratory Rate 19 03/20/25 12:43 Blood Pressure 118/75 03/20/25 12:43 Pulse Oximetry 100 03/20/25 12:43 Oxygen Delivery Room Air 03/20/25 08:40 Lab Data Lab results reviewed: Yes I reviewed the patient's lab results. 03/20/25 08:43 03/20/25 08:43 Labs: Lab Results 03/20/25 03/20/25 Range/Units 08:43 12:00 WBC 8.4 (4.5-10.0) K/mm3 RBC 5.17 (4.2-5.4) M/mm3 Hgb 13.6 D (12.0-15.0) g/dL Hct 41.9 (37.0-47.0) % MCV 81.0 (80-100) fl MCH 26.3 (26-34) pg MCHC 32.5 (32-36) g/dl RDW 14.0 (11.5-14.5) % Plt Count 201 D (150-375) k/mm3 MPV 11.7 H (7.4-10.4) fl Immature Gran % (Auto) 0.4 (0-0.5) % Neut % (Auto) 84.6 H (45.5-73.1) % Lymph % (Auto) 10.4 L (18.3-44.2) % Rush % (Auto) 4.1 (2.6-8.5) % Eos % (Auto) 0.1 (0-4.4) % Baso % (Auto) 0.4 (0.2-1.2) % Lymph # (Auto) 0.87 L (0.9-3.2) K/mm3 Rush # (Auto) 0.3 (0.1-0.6) K/mm3 Eos # (Auto) 0.0 (0-0.3) K/mm3 Baso # (Auto) 0.0 (0.0-0.1) K/mm3 Abs Immat Gran (auto) 0.03 (0.00-0.031) K/mm3 Absolute Neuts (auto) 7.1 H (1.3-6.7) K/mm3 Absolute Nucleated RBC 0.000 (0.0-0.012) K/mm3 Nucleated RBC % 0.0 (0.0-0.2) % PT 14.0 (11.1-14.7) Seconds INR 1.1 APTT 30.6 (22.3-36.8) Seconds Sodium 133 L (137-145) mmol/L Potassium 3.7 (3.4-5.0) mmol/L Chloride 98 (98-107) mmol/L Carbon Dioxide 23 (22-30) mmol/L Anion Gap 12 (4-12) mmol/L BUN 11 (7-17) mg/dL Creatinine 0.71 (0.7-1.0) mg/dL Estim Creat Clear Calc 79 ml/min Estimated GFR > 60 (59 - ) Glucose 79 (65-110) mg/dL Calcium 9.4 (8.4-10.2) mg/dL Total Bilirubin 0.8 (0.2-1.3) mg/dL AST 31 (14-36) U/L ALT 19 (6-35) U/L Alkaline Phosphatase 39 (38-126) U/L Troponin I < 0.012 < 0.012 (0.000-0.034) ng/mL Total Protein 8.2 (6.3-8.2) g/dL Albumin 4.6 (3.5-5.1) g/dL Lipase 43 (23-300) U/L Imaging Data Radiologist's impression: ITS Impressions Chest X-Ray 03/20/25 09:26 Impression: No acute cardiopulmonary abnormality. ECG Data EKG #1: ECG completion date: 03/20/25 ECG completion time: 08:40 EKG Interpretation: bradycardia (52), sinus rhythm, no ectopy, non-specific ST changes, normal QRS and normal QT Discharge Plan Discharge Clinical Impression: Gastroenteritis Patient Disposition: Home Condition: Stable Instructions: Gastroenteritis (ED) Additional Instructions: Return to the emergency department if you develop severe abdominal pain, severe nausea and vomiting to the point where you are unable to keep down fluids, if you develop chest pain or difficulty breathing, blood in your stool, dizziness or fainting, or if you develop any other new or concerning symptoms as these could be signs of more serious medical illness. Try to stay well hydrated. Patient Language: Slovenian Prescriptions: New ondansetron 4 mg tablet,disintegrating 4 mg PO Q6H PRN (Reason: nausea and vomiting) Qty: 10 0RF famotidine 20 mg tablet 20 mg PO BID Qty: 14 0RF No Action PNV no.95-ferrous fumarate-FA [] 28 mg iron- 800 mcg Tablet 1 tablet PO DAILY Follow-up/Referrals: Puja Pabon DO [Physician, Family Practice] - 1 Week PHYSICIAN,RAILROAD FIRER/FIREMAN [Primary Care Provider, Internal Medicine]
[2025-03-20 12:38] LABS: Troponin I < 0.012 ng/mL (0.000-0.034)
[2025-03-20 12:43] VITALS: BP 118/75; PULSE 60; RESP 19; O2SAT 100
== END 2025-03-20 13:35 | disposition home or self-care (01) ==
PROVIDERS: Emergency Provider Emergency Medicine
DX: K52.9 Noninfective gastroenteritis and colitis, unspecified (principal)
CPT/HCPCS: 36415; 71046; 80053; 83690; 84484; 85025; 85610; 85730; 93005; 96361; 96374; 96375; 99284; J1885; J2405; J7030